=== PATIENT | male | born 1950 | race Caucasian/White ===

== ENCOUNTER 2020-09-16 09:11 | Outpatient (REF) | payer OTHER, SELFPAY ==
[2020-09-16 18:56] LABS: HCT 40.9 % (40.0-50.0); HGB 13.6 g/dL (13.5-17.5); MCH 30.7 pg (27.0-33.0); MCHC 33.3 % (32.0-36.0); MCV 92.3 fL (80-95); MPV 11.7 fL (8.0-11.0); Platelet Count 115 10^3/uL (130-400); RBC 4.43 10^6/uL (4.36-5.78); RDW 13.6 % (11.8-14.1); RDW-SD 46.5 fL; WBC 10.15 10^3/uL (4.4-10.8)
[2020-09-16 19:46] LABS: Iron 70 ug/dL (65-175)
[2020-09-16 19:54] LABS: Hemoglobin A1C 8.7 % (<5.7)
[2020-09-16 19:57] LABS: ALT 20 U/L (16-63); AST 18 U/L (15-37); Albumin 3.8 g/dL (3.4-5.0); Alkaline Phosphatase 176 U/L (46-116); Anion Gap 9.1 mmol/L (3-11); BUN 15 mg/dL (7-18); Bilirubin, Total 0.5 mg/dL (0.2-1.0); CO2 23.9 mmol/L (21.0-32.0); CREATININE 0.73 mg/dL (0.70-1.30); Calcium 9.3 mg/dL (8.5-10.1); Calculated LDL 70 mg/dL (<100); Chloride 103 mmol/L (98-107); Cholesterol 146 mg/dL (<200); Ferritin 148 ng/mL (26-388); Glucose 162 mg/dL (74-106); HDL Cholesterol 59 mg/dL (40-60); Potassium 4.8 mmol/L (3.5-5.1); Sodium 136 mmol/L (136-145); Total Protein 7.2 g/dL (6.4-8.2); Triglyceride 86 mg/dL (<150)
[2020-09-17 18:13] LABS: PSA, Screening 0.3 ng/mL (0.0-4.5)
== END 2020-09-16 09:31 ==
LOC: NCHCN 09:11
PROVIDERS: PCP Family Medicine; Visit Provider Physician Assistant
DX: D69.6 Thrombocytopenia, unspecified (principal); E11.9 Type 2 diabetes mellitus without complications; I25.10 Atherosclerotic heart disease of native coronary artery without angina pectoris; G25.81 Restless legs syndrome; N40.0 Benign prostatic hyperplasia without lower urinary tract symptoms; Z12.5 Encounter for screening for malignant neoplasm of prostate
CPT/HCPCS: 80053; 80061; 84153; 85027; 82728; 83036; 83540

== ENCOUNTER 2021-01-20 09:45 | Outpatient (REF) | payer OTHER, SELFPAY ==
[2021-01-20 16:37] LABS: COMMENT (LAB VIEW ONLY) 82.96 mg/dL; Microalb ug/mg Crea 98.1 ug/mg Cr
== END 2021-01-20 09:46 | disposition home or self-care (01) ==
LOC: NCHCN 09:45
PROVIDERS: PCP Family Medicine; Visit Provider Physician Assistant
DX: E11.9 Type 2 diabetes mellitus without complications (principal)
CPT/HCPCS: 82043; 82570

== ENCOUNTER 2021-05-27 15:28 | Outpatient (REF) | payer OTHER, SELFPAY ==
[2021-05-27 14:38] LABS: Creatine Kinase 69 U/L (39-308); FREE T4 1.06 ng/dL (0.76-1.46); TSH 1.39 uIU/mL (0.36-3.74)
[2021-05-27 14:39] LABS: ESR 14 mm/hr (0-20)
[2021-05-27 15:16] LABS: Vitamin B12 518 pg/mL (193-986)
[2021-05-27 21:28] LABS: Rheumatoid Factor <8.6 IU/mL (<12.0)
[2021-05-28 13:58] LABS: Albumin 57.7 % (55.8-66.1); Total Protein 6.4 g/dL (6.3-8.2)
[2021-05-28 14:03] LABS: ANA Interpretation Positive (Negative)
== END 2021-05-27 15:29 | disposition home or self-care (01) ==
LOC: NCHCN 15:28
PROVIDERS: PCP Family Medicine; Visit Provider Physician Assistant
DX: R13.19 Other dysphagia (principal)
CPT/HCPCS: 82550; 85652; 82607; 83519; 84165; 84439; 84443; 86038; 86431

== ENCOUNTER → 2021-06-08 02:11 | Outpatient (CLI) | payer OTHER, SELFPAY ==
--- NOTE | 2021-06-08 07:00 | DI.CT_ITS ---
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 TECHNIQUE: Imaging Protocol: Axial CT angiography was performed with multi-slice acquisition and mu lti-planar and/or 3D reconstructions. CONTRAST MATERIAL: Intravenous: Omnipaque 350 Contrast volume:structured data in ml COMPARISON: CT NECK WITH CONTRAST from 08/20/2010 FINDINGS: There is opacification of right-sided ethmoidal air cells as well as the right sphenoid sinus evident . Frontal sinuses are not included in the field of view. Visualized maxillary sinuses are clear as are the mastoid air cells. Salivary glands: Submandibular glands unremarkable. Parotid glands unremarkable. Nasopharynx: Unremarkable. Oropharynx: Uvula is slightly prominent size but midline. No obvious asymmetric tonsillar masses. Hypopharynx: Uvula is thickened and there is also thickening of the aryepiglottic folds, this more pr ominent on the right side and suspicious for neoplastic involvement. Vocal cords: Adducted and difficult to assess. Subglottic airway appears unremarkable. Lymph nodes: There is no obvious lymphadenopathy on either side of the neck-jugular chains nor in the supraclavicular regions. Vascular: There is significant atherosclerotic narrowing of the proximal right internal carotid arter y, this related to both calcified and noncalcified plaque. Similar findings are not seen on the oppo site-left side. The internal jugular veins are patent. Thyroid gland: Unremarkable Visualized lung apices: No nodules evident. Osseous: No lytic osseous lesions identified. IMPRESSION: 1. There is abnormal mass thickening of the epiglottis and aryepiglottic folds, more prominent on the right side-suspicious for neoplasm. Correlation with any history of prior radiation treatment recom mended. Recommend direct visualization-endoscopy. 2. No obvious significant adenopathy evident in the neck. 3. Significant atherosclerotic narrowing of the proximal right internal carotid artery incidentally noted. RADIATION DOSE DELIVERED: 383.66mGy.cm Total DLP DATA REPOSITORY: All CT scans at this facility are submitted to the National Radiology Data Registry (NRDR) Dose Index Registry (DIR) with the [employer] ([employer]). RADIATION OPTIMIZATION: All CT scans at this facility use at least one of these dose optimization te chniques: automated exposure control; mA and/or kV adjustment per patient size (includes targeted exa ms where dose is matched to clinical indication); or iterative reconstruction.
[2021-06-08 09:34] LABS: CREATININE 0.7 mg/dL (0.70-1.30)
[2021-06-08] MEDS: Omnipaque 350 MG/ML 100 ML BTL IJ (09:54)
[2021-06-08] MEDS: Normal Saline - Diluent 50 ML VIAL IV (09:55)
[2021-06-08] MEDS: Normal Saline Flush 10 ML SYR IVP (09:56)
== END ==
PROVIDERS: PCP Physician Assistant; Visit Provider Otolaryngology
DX: J38.7 Other diseases of larynx (principal); R13.10 Dysphagia, unspecified; R63.0 Anorexia; I65.21 Occlusion and stenosis of right carotid artery
CPT/HCPCS: 70491; 82565; J3490

== ENCOUNTER 2021-07-01 04:31 | Outpatient (CLI) | payer OTHER, SELFPAY ==
[2021-07-01] MEDS: Albuterol HFA 18 GM 200 PUFF INH IH (14:14)
[2021-07-01] MEDS: Inhaler, Assist Device 1 EACH MC (14:15)
--- NOTE | 2021-07-01 14:54 | W.PFT ---
Date of service: 07/01/21 Time of Service: 13:02 Pulmonary Function Test Result Requesting Provider Shonna Indications: COPD Interpretation Spirometry: There is moderate airflow limitation. There is not a significant bronchodilator effect. Lung Volumes: There is some evidence of air trapping. Diffusion Capacity: The diffusion is reduced. Airway Pressure: Airways resistance is increased. Impression Moderate airflow obstruction with a reduced diffusion. Note: When compared to 08/20/2010 the FVC has increased in the FEV1 has decreased. Clinical Correlation therefore is recommended.
--- NOTE | 2021-07-01 14:56 | W.PFT ---
Date of service: 07/01/21 Time of Service: 12:53 Pulmonary Function Test Result Indications: COPD 6 Minute Walk Test Distance: 1000 feet No significant desaturations experienced during duration of test.
== END 2021-07-01 04:32 | disposition home or self-care (01) ==
LOC: RT 04:31
PROVIDERS: PCP Physician Assistant; Visit Provider Student in an Organized Health Care Education/Training Program
DX: J44.9 Chronic obstructive pulmonary disease, unspecified (principal); R94.2 Abnormal results of pulmonary function studies
CPT/HCPCS: 94060; 94618; 94726; 94729

== ENCOUNTER 2021-08-21 10:56 | Inpatient (IN) | payer OTHER, SELFPAY ==
[2021-08-21] VITALS (51 sets, daily range): BP systolic 96–154; BP diastolic 33–63; PULSE 46–59; RESP 14–20; TEMP 36.3–37.1; O2SAT 89–100
--- NOTE | 2021-08-21 11:30 | RT.EKG_ITS ---
APPROVED REPORT Exam: Resting ECG Reason for Exam: sob Patient Location: E HR:52 bpm ECG Measurements Heart Rate 52 AXIS MO 177 P 70 QRSd 80 QRS 25 QT 428 T 51 QTc 398 Conclusion Sinus bradycardia...rate< 60 No stemi, intervals unremarkable
--- NOTE | 2021-08-21 11:32 | DI.CT_ITS ---
Exam(s) CT CHEST PE ABD PELVIS W EXAM: CT CHEST PE ABD PELVIS W CLINICAL HISTORY: cp, sob, cough, chills, recent procedure (peg tube TECHNIQUE: CT examination of the chest, abdomen, and pelvis was performed with intravenous infusion of 100 cc of Omnipaque 350. COMPARISON: No exams were available for comparison FINDINGS: There is large area of dense consolidation involving the right lower lobe. Patchy reticular nodular and ground-glass opacities are seen peripherally in both lung bases as well consistent pneumonia. Pr ior granulomatous disease is noted with intrapulmonary calcifications noted. The peripheral bronchi are of very small caliber which may reflect bronchospasm or mucous plugging. Peribronchial thickenin g extends into both pulmonary zay. There is no pleural effusion seen. There is no mediastinal or hilar adenopathy. Pulmonary arteries are unremarkable with no evidence of pulmonary embolic disease. Thoracic aorta and major branches appear intact with no evidence of aneurysm or dissection. No bony abnormality seen in the thorax. There is a recently placed PEG tube in place with its tip in this stomach and an appropriately inflat ed balloon. There is a small quantity of free air in the abdominal wall at the insertion site, presu mably related to the insertion procedure. Note is made of marked nodular contour of the liver consistent with history of cirrhosis. Spleen is mildly enlarged. The gallbladder has been surgically removed. No biliary dilatation seen. Pancreas appears intact. The adrenals are unremarkable in appearance. The kidneys appear intact with no evidence of hydroneph rosis or nephrolithiasis. Abdominal aorta and major visceral branches appear intact. No significant abdominal wall hernia seen. No significant abdominal or pelvic adenopathy. No focal bowel pathology. There is mild to moderate small bowel dilatation which may reflect an ileu s. No evidence of appendicitis or diverticulitis. IMPRESSION: Appearance of the lungs is consistent with acute infectious process with a large area of consolidatio n in the right lung base posteriorly and additional areas of presumed patchy multifocal pneumonia. PEG tube noted in place in the anterior abdominal wall extending into the gastric body. There is a s mall quantity of gas in the soft tissues of the abdominal wall presumably related to the PEG insertio n. No gross fluid collection seen. Findings consistent with small bowel ileus noted. RADIATION DOSE DELIVERED: Total DLP Total DLP CTDIvol
--- NOTE | 2021-08-21 11:46 | ED.GENADUL_ITS ---
Discharge Plan Disposition Patient Disposition: [facility] INPATIENT Condition: Stable Discharge Details Clinical Impression: COVID-19, HCAP (healthcare-associated pneumonia) Primary Care Provider: Zack Marc ED Provider: Levon Paredes Alfred Meds and New Rx's Prescriptions: No Action lansoprazole [Prevacid] 30 mg capsule,delayed release(DR/EC) 30 mg PO DAILY RF: 0 hydrocodone-acetaminophen 5-325 mg tablet 1 tab PO BID PRNRF: 0 sucralfate [Carafate] 1 gram tablet 1 g PO QAC RF: 0 montelukast 10 mg tablet 10 mg PO DAILY RF: 0 albuterol sulfate 90 mcg/actuation HFA aerosol inhaler 2 puff inhalation QID RF: 0 arformoterol [Brovana] 15 mcg/2 mL solution for nebulization 2 ml inhalation BID RF: 0 carvedilol [Coreg] 3.125 mg tablet 3.125 mg PO BID RF: 0 finasteride 5 mg tablet 5 mg PO DAILY RF: 0 tamsulosin [Flomax] 0.4 mg capsule 0.4 mg PO DAILY RF: 0 ipratropium-albuterol 0.5 mg-3 mg(2.5 mg base)/3 mL solution for nebulization 3 ml inhalation BID PRNRF: 0 losartan 25 mg tablet 25 mg PO DAILY RF: 0 metformin 1,000 mg tablet 1,000 mg PO BID RF: 0 nitroglycerin 0.4 mg tablet, sublingual See Rx Instructions sublingual DIRECTED PRNRF: 0 ropinirole 2 mg tablet 2 mg PO DAILY RF: 0 simvastatin 20 mg tablet 20 mg PO DAILY RF: 0 Bevespi Aerosphere 9-4.8 mcg HFA aerosol inhaler 2 puff inhalation BID Qty: 1 RF: 5 Medical Decision Making <Sukhwinder Lin, - Last Filed: 08/21/21 15:34> 71-year-old male with a past medical history of COPD, liver cirrhosis, diabetes, hypertension, coronary artery disease without stents, GERD, throat cancer, who is scheduled to have surgery on this on September 07 at [facility], who just had a feeding tube placed 3 days ago at [facility], presents today for chest pain abdominal pain and shortness of breath and difficulty breathing. Covid patient states that ever since the procedure he has had difficulty taking a deep breath, felt short of breath, and has had occasional chills. He has had a cough but it is been nonproductive. He also admits to severe left upper quadrant abdominal pain every time he coughs or takes a deep breath. He denies any history of blood clots. He denies any trauma. He has not been taking anything p.o., and has been using the PEG tube without pain or complication. He was vaccinated for Covid and has gotten his booster shot. does state that his oxygen saturations were 84% at home. He does not use home oxygen. he denies any other complaints at this time. He denies any complications during the procedure. No other modifying factors. No hemoptysis. Physical exam demonstrates mild tenderness over the left upper quadrant epigastric region at the site of the PEG tube. Lung sounds demonstrate crackles, he is mildly hypoxic at 92% on room air. Bedside ultrasound shows no free fluid in the abdomen, lung sliding is present bilaterally. Concern for potential aspiration pneumonia, but PE is also on the differential with the recent procedure. Surgical complication with diaphragmatic irritation is also on the differential. We will get CT scan, treat the patient's pain, monitor closely and reassess 3:32 PM Patient's Covid test has returned positive, no white count or bandemia. Renal function stable. VBG stable. Patient initially did go to CAT scan, however he is unable to tolerate the position. There is a significant delay in getting the imaging results, are still pending the patient going back to CAT scan. Patient will be signed out to my colleague Dr. Levon Paredes for follow-up on imaging and reassessment. Expect need for admission <Levon Paredes MD - Last Filed: 08/21/21 16:21> patient signed out to me pending imaging results which revealed consolidation of right lung base and ileus otherwise no acute findings. He is stable, does become hypoxic with movement though. Dexamethasone orderd for covid and covering for hcap with vancomycin and zosyn, will discuss with hospitalist about admission. His peg tube site shows no signs of infection, no erythema or warmth Imaging Data Radiologic Study: Attestation: I personally reviewed and interpreted this imaging study as follows: Imaging: CT Scan Radiologist's impression: IMPRESSION: Appearance of the lungs is consistent with acute infectious process with a large area of consolidation in the right lung base posteriorly and additional areas of presumed patchy multifocal pneumonia. PEG tube noted in place in the anterior abdominal wall extending into the gastric body. There is a small quantity of gas in the soft tissues of the abdominal wall presumably related to the PEG insertion. No gross fluid collection seen. Findings consistent with small bowel ileus noted. HPI <Sukhwinder Lin, - Last Filed: 08/21/21 15:34> General Date/Time Provider Initiated Documentation: 08/21/21 11:12 . HPI Narrative: 71-year-old male with a past medical history of COPD, liver cirrhosis, diabetes, hypertension, coronary artery disease without stents, GERD, throat c ancer, who is scheduled to have surgery on this on September 07 at [facility], who just had a feeding tube placed 3 days ago at [facility], presents today for chest pain abdominal pain and shortness of breath and difficulty breathing. Covid patient states that ever since the procedure he has had difficulty taking a deep breath, felt short of breath, and has had occasional chills. He has had a cough but it is been nonproductive. He also admits to severe left upper quadrant abdominal pain every time he coughs or takes a deep breath. He denies any history of blood clots. He denies any trauma. He has not been taking anything p.o., and has been using the PEG tube without pain or complication. He was vaccinated for Covid and has gotten his booster shot. does state that his oxygen saturations were 84% at home. He does not use home oxygen. he denies any other complaints at this time. He denies any complications during the procedure. No other modifying factors. No hemoptysis. Related Data Home Medications Medication Instructions Recorded Confirmed albuterol sulfate 90 mcg/actuation 2 puff INHALATION QID 05/15/21 08/21/21 aerosol inhaler arformoterol 15 mcg/2 mL solution 2 ml INHALATION BID 05/15/21 08/21/21 for nebulization carvedilol 3.125 mg tablet 3.125 mg PO BID 05/15/21 08/21/21 finasteride 5 mg tablet 5 mg PO DAILY 05/15/21 08/21/21 ipratropium 0.5 mg-albuterol 3 mg 3 ml INHALATION BID PRN ml 05/15/21 08/21/21 (2.5 mg base)/3 mL nebulization soln losartan 25 mg tablet 25 mg PO DAILY 05/15/21 08/21/21 metformin 1,000 mg tablet 1,000 mg PO BID 05/15/21 08/21/21 nitroglycerin 0.4 mg sublingual See Rx Instructions SUBLINGUAL 05/15/21 08/21/21 tablet DIRECTED PRN tab ropinirole 2 mg tablet 2 mg PO DAILY 05/15/21 08/21/21 simvastatin 20 mg tablet 20 mg PO DAILY 05/15/21 08/21/21 tamsulosin 0.4 mg capsule 0.4 mg PO DAILY 05/15/21 08/21/21 hydrocodone 5 mg-acetaminophen 325 1 tab PO BID PRN 05/21/21 08/21/21 mg tablet lansoprazole 30 mg capsule,delayed 30 mg PO DAILY 05/21/21 08/21/21 release montelukast 10 mg tablet 10 mg PO DAILY 06/03/21 08/21/21 sucralfate 1 gram tablet 1 g PO QAC 06/03/21 08/21/21 glycopyrrolate 9 mcg-formoterol 2 puff INHALATION BID #1 inh 06/26/21 08/21/21 4.8 mcg HFA aerosol inhaler Previous Rx's Medication Instructions Recorded glycopyrrolate 9 mcg-formoterol 2 puff INHALATION BID #1 inh 06/26/21 4.8 mcg HFA aerosol inhaler Allergies Allergy/AdvReac Type Severity Reaction Status Date / Time amitriptyline Allergy Verified 06/03/21 11:18 atorvastatin [From Lipitor] Allergy Verified 06/03/21 11:18 prednisone AdvReac Severe Verified 06/03/21 11:18 General Stated Complaint: GenMedical ETHAN: 3 Review of Systems <Sukhwinder Lin DO - Last Filed: 08/21/21 15:34> All systems reviewed & are unremarkable except as noted in HPI and below PFS <Sukhwinder Lin DO - Last Filed: 08/21/21 15:34> Medical History Allergic rhinitis Benign prostatic hyperplasia Carotid artery stenosis Cataract Chest pain Chronic back pain Contusion of right hip Coronary artery disease Diabetes mellitus Diverticular disease of colon Dysphagia Hypertension Injury, brachial plexus Lung collapse Lung nodule Macular degeneration Neck pain Peripheral artery disease Right lower lobe pneumonia Shoulder joint pain Sleep apnea Thrombocytopenia Transient ischemic attack Surgical History Hx of angioplasty Hx of cholecystectomy Hx of neck surgery Hx of shoulder surgery Family History Father Heart disease Cancer stomach cancer. Diabetes Asthma Mother Heart disease Cancer Uterine cancer. Son Cancer Renal cancer. 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 Exam <Sukhwinder Lin DO - Last Filed: 08/21/21 15:34> Narrative Exam Narrative: 1.Const: Well-nourished, Well-developed, appearing stated age 2.Eyes: PERRL, no conjunctival injection, and symmetrical lids. 3.ENT: Atraumatic external nose and ears. Moist MM. Neck: Symmetric, trachea midline, No thyromegaly. 4.CVS: +S1/S2, No murmurs or gallops. Peripheral pulses 2+ and equal in all ex tremities. Brisk capillary refill in all extremities. 5.RESP: Mildly labored respiratory effort, crackles in the bases. Reduced breath sounds throughout. No wheezes or rhonchi. 6.GI: Soft, mildly distended, mild tenderness around the PEG tube itself, but no other generalized abdominal tenderness. PEG tube itself does not show any significant discharge or redness or erythema 7.MSK: Normocephalic/Atraumatic, Extremities w/o deformity or ttp No cyanosis or clubbing, Normal movement of all extremities, no calf 8.Skin: Warm, Dry. No rashes or lesions. 9.Neuro: business systems lead II-XII grossly intact. Sensation grossly intact, no focal neurologic deficits. 10.Psych: (AAO) x3. Appropriate mood and affect Course <Sukhwinder Lin DO - Last Filed: 08/21/21 15:34> Vital Signs Vital signs: Vital Signs Temperature 36.7 C 08/21/21 11:10 Pulse 59 L 08/21/21 11:10 Respiratory Rate 20 08/21/21 11:10 Blood Pressure 137/51 L 08/21/21 11:10 Pulse Oximetry 98 08/21/21 11:10 Temperature 36.7 C 08/21/21 11:10 Pulse 59 L 08/21/21 11:10 Respiratory Rate 20 08/21/21 11:19 Respiratory Effort 08/21/21 11:19 Respiratory Depth Shallow 08/21/21 11:19 Blood Pressure 137/51 L 08/21/21 11:10 Blood Pressure Position Sitting 08/21/21 11:10 Pulse Oximetry 98 08/21/21 11:10 Oxygen Delivery Method Room Air 08/21/21 11:10 Oxygen Flow Rate 0 08/21/21 11:10 Pain Level 10 08/21/21 11:10 Lab/Test Results Lab/Test Results: 08/21/21 11:33 Blood Blood Culture - Pending 08/21/21 11:33 Blood Blood Culture - Pending Laboratory Tests Range/Units 08/21/21 11:40 COVID-19 Source NASOPHARYX
[2021-08-21 12:05] LABS: BE (Venous) 6 mmol/L (-2-3); HCO3 (Venous) 31 mmol/L (23-28); O2 Sat (Venous) 67 %; TCO2 (Venous) 28 mmol/L (24-29); pCO2 (Venous) 50 mmHg (41-51); pO2 (Venous) 34 mmHg
[2021-08-21 12:06] LABS: Abs Immature Grans 0.03 10^3/uL (0.0-0.06); Absolute Basophil Count 0.02 10^3/uL (0.0-0.2); Absolute Eosinophil Count 0.07 10^3/uL (0.0-0.7); Absolute Lymphocyte Count 1.51 10^3/uL (1.2-3.4); Absolute Monocyte Count 1.11 10^3/uL (0.1-0.8); Basophils % 0.2; Eosinophils % 0.7; HCT 38.9 % (40.0-50.0); HGB 12.7 g/dL (13.5-17.5); Immature Grans % 0.3; Lactate 1.1 mmol/L (0.6-1.4); MCH 30.8 pg (27.0-33.0); MCHC 32.6 % (32.0-36.0); MCV 94.2 fL (80-95); MPV 11.3 fL (8.0-11.0); Monocytes % 11.1; Neutrophils % 72.7; Nucleated RBC 0 %; RBC 4.13 10^6/uL (4.36-5.78); RDW 14.8 % (11.8-14.1); RDW-SD 51.2 fL; WBC 10.04 10^3/uL (4.4-10.8)
[2021-08-21 12:19] LABS: Platelet Count 82 10^3/uL (130-400)
[2021-08-21 12:20] LABS: INR 1.2 (0.9-1.1); PTT Activated 27.1 sec (21.0-27.5); Prothrombin Time 11.6 sec (9.3-11.0)
[2021-08-21 12:25] LABS: ALT 18 U/L (16-63); AST 13 U/L (15-37); Albumin 3.1 g/dL (3.4-5.0); Alkaline Phosphatase 90 U/L (46-116); Anion Gap 5.3 mmol/L (3-11); BUN 13 mg/dL (7-18); Bilirubin, Total 0.6 mg/dL (0.2-1.0); CO2 30.7 mmol/L (21.0-32.0); CREATININE 0.6 mg/dL (0.70-1.30); Chloride 104 mmol/L (98-107); Glucose 130 mg/dL (74-106); Lipase 83 U/L (73-393); Potassium 4.3 mmol/L (3.5-5.1); Sodium 140 mmol/L (136-145); Total Protein 7.1 g/dL (6.4-8.2)
[2021-08-21 12:32] LABS: Troponin I < 0.05 ng/mL (<0.06)
[2021-08-21 12:36] LABS: COVID-19 PCR POSITIVE (Negative)
[2021-08-21] MEDS: Normal Saline Flush 10 ML SYR IVP ×2 (13:22→19:43)
[2021-08-21] MEDS: Omnipaque 350 MG/ML 100 ML BTL IJ (15:37)
[2021-08-21] MEDS: Normal Saline - Diluent 50 ML VIAL IV (15:38)
[2021-08-21 16:04] LABS: Troponin I < 0.05 ng/mL (<0.06)
[2021-08-21] MEDS: Dexamethasone 10 MG/ML VIAL IVP (16:54)
[2021-08-21] MEDS: PIPERACILLIN/TAZO 4.5 GM in Normal Saline 100 ML IVPB (16:54)
[2021-08-21] MEDS: VANCOMYCIN 1,000 MG in Normal Saline 250 ML 166.6666 MG IVPB (17:43)
--- NOTE | 2021-08-21 17:59 | W.PM.HP.N ---
Date of service: 08/21/21 Time of Service: 18:00 Assessment and Plan Assessment and plan (1) COVID-19: Status: Acute Assessment and plan: with hypoxia and complicated by what appears to be aspiration pneumonia. Will treat with remdesivir and dexamethasone, IS/acapella/proning. The patient is not a candidate for baricitinib due to h/o cirrhosis. (2) Aspiration pneumonia: Status: Acute Assessment and plan: Likely occured because of either the PEG placement or since the PEG placement from TFs. Tx with zosyn. (3) Hypoxia: Status: Acute Assessment and plan: Multifactorial. Due to above. As above. (4) Cancer, epiglottis: Status: Acute Assessment and plan: The patient is expected to undergo surgery forthis at [facility] on 09/07. NPO. TFs via PEG when ileus resolves. Might be a difficult airway. (5) Dysphagia: Status: Acute Assessment and plan: s/p PEG. As above (6) Thrombocytopenia: Status: Chronic Assessment and plan: Acute on chronic, in setting of known cirrhosis and varices as well as COVID-19. Will not administer chemical DVT prophylaxis. Will trend plts. (7) Ileus following gastrointestinal surgery: Status: Acute Assessment and plan: Consult general surgery. NPO. Very gentle IVF x 1 L. (8) Cirrhosis: Status: Chronic Assessment and plan: Due to VO, w/ h/o varices and thrombocytopenia. As above. (9) Diabetes mellitus: Status: Chronic Assessment and plan: hold oral hypoglycemics. Cover with SSI. Expect steroid induced hyperglycemia. (10) DVT prophylaxis: Status: Acute Assessment and plan: SCDs. Avoid Chemical DVT ppx in setting of thrombocytopenia and known varices. 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 on 08/19/21, who also has a h/o VO/cirrhosis with varices and chronic thrombocytopenia who presented to [facility] ED today w/ complaints of shortness of breath and feeling of inability to take a deep breath ever since the procedure. He also reported midsternal chest and abdominal pain since the procedure which are entirely relieved at the time of my interview with him. Chest and abdominal pain were worse with deep breathing and coughing. He reports chills and nonproductive cough. His O2 sat at home was 84% on RA. He was saturating 92% on RA in our ED, but was placed on 2-3 L of nonrebreather and felt better. He tested positive for COVID-19. His imaging revealed a RLL pneumonia and an ileus. He was given empiric vancomycin/zosyn. Hospitalist admission was requested. He is currently on 3 L of O2 which is being given via a nonrebreather, which is more comfortable for him. He gets his nutrition through PEG. He has not had flatus and has not had a BM for a while - he cannot specify how long. He states that right now he feels the best he has felt in a long time. We do not have the tubing for his model of the PEG tube and his will bring it in tomorrow. Review of Systems All systems reviewed & are unremarkable except as noted in HPI and below PFSH Medical History Allergic rhinitis Benign prostatic hyperplasia Carotid artery stenosis Cataract Chest pain Chronic back pain Contusion of right hip Coronary artery disease Diabetes mellitus Diverticular disease of colon Dysphagia Hypertension Injury, brachial plexus Lung collapse Lung nodule Macular degeneration Neck pain Peripheral artery disease Right lower lobe pneumonia Shoulder joint pain Sleep apnea Thrombocytopenia Transient ischemic attack Surgical History Hx of angioplasty Hx of cholecystectomy Hx of neck surgery Hx of shoulder surgery Family History Father Heart disease Cancer stomach cancer. Diabetes Asthma Mother Heart disease Cancer Uterine cancer. Son Cancer Renal cancer. 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 Meds Allergies and Home Medications Allergies Allergy/AdvReac Type Severity Reaction Status Date / Time amitriptyline Allergy Verified 06/03/21 11:18 atorvastatin [From Lipitor] Allergy Verified 06/03/21 11:18 prednisone AdvReac Severe Verified 06/03/21 11:18 Home Medications Medication Instructions Recorded Confirmed Type albuterol sulfate 90 mcg/actuation 2 puff INHALATION QID 05/15/21 08/21/21 History aerosol inhaler arformoterol 15 mcg/2 mL solution 2 ml INHALATION BID 05/15/21 08/21/21 History for nebulization carvedilol 3.125 mg tablet 3.125 mg PO BID 05/15/21 08/21/21 History finasteride 5 mg tablet 5 mg PO DAILY 05/15/21 08/21/21 History ipratropium 0.5 mg-albuterol 3 mg 3 ml INHALATION BID PRN ml 05/15/21 08/21/21 History (2.5 mg base)/3 mL nebulization soln losartan 25 mg tablet 25 mg PO DAILY 05/15/21 08/21/21 History metformin 1,000 mg tablet 1,000 mg PO BID 05/15/21 08/21/21 History nitroglycerin 0.4 mg sublingual See Rx Instructions SUBLINGUAL 05/15/21 08/21/21 History tablet DIRECTED PRN tab ropinirole 2 mg tablet 2 mg PO DAILY 05/15/21 08/21/21 History simvastatin 20 mg tablet 20 mg PO DAILY 05/15/21 08/21/21 History tamsulosin 0.4 mg capsule 0.4 mg PO DAILY 05/15/21 08/21/21 History hydrocodone 5 mg-acetaminophen 325 1 tab PO BID PRN 05/21/21 08/21/21 History mg tablet lansoprazole 30 mg capsule,delayed 30 mg PO DAILY 05/21/21 08/21/21 History release montelukast 10 mg tablet 10 mg PO DAILY 06/03/21 08/21/21 History sucralfate 1 gram tablet 1 g PO QAC 06/03/21 08/21/21 History glycopyrrolate 9 mcg-formoterol 2 puff INHALATION BID #1 inh 06/26/21 08/21/21 Rx 4.8 mcg HFA aerosol inhaler Exam Narrative Exam Narrative: General: Pleasant middle-aged male, A&Ox3, laying comfortably in bed, no evidence of dyspnea/tachypnea/cyanosis, able to speak in full sentences Neurological: A&Ox3, no focal deficits Psychiatric: Appropriate speech pattern/content Skin: Visible skin intact HEENT: Atraumatic, normocephalic, EOMI, dry MM, clear oropharynx, no goiter or JVD Cardiovascular: RRR, no m/r/g Lungs: slight rales on inspiration, diminished breath sounds at B bases Gastrointestinal: soft, tender around the PEG site which is dressed/dry/intact, nondistended, I did not hear bowel sounds Genitourinary: deferred Extremities: no edema BLE's Results Imaging Additional studies: CT chest/abdomen/pelvis: Appearance of the lungs is consistent with acute infectious process with a large area of consolidation in the right lung base posteriorly and additional areas of presumed patchy multifocal pneumonia. PEG tube noted in place in the anterior abdominal wall extending into the gastric body. There is a small quantity of gas in the soft tissues of the abdominal wall presumably related to the PEG insertion. No gross fluid collection seen. Findings consistent with small bowel ileus noted. EKG: HR 52, sinus bradycardia, no acute ischemia Labs Result diagrams: 08/21/21 12:00 08/21/21 12:00 Labs: Laboratory Results - last 24 hr 08/21/21 08/21/21 08/21/21 11:40 12:00 12:00 WBC RBC Hgb Hct MCV MCH MCHC RDW Plt Count MPV Immature Gran % Neutrophils % Lymphocytes % Monocytes % Eosinophils % Basophils % Nucleated RBC % Absolute Neutrophils Absolute Lymphocytes Absolute Monocytes Absolute Eosinophils Absolute Basophils PT INR APTT VBG pH VBG pCO2 VBG pO2 VBG HCO3 VBG Total CO2 VBG O2 Saturation VBG Base Excess VBG Lactate 1.1 Sodium 140 Potassium 4.3 Chloride 104 Carbon Dioxide 30.7 Anion Gap 5.3 BUN 13 Creatinine 0.6 L Estimated GFR/1.73 m2 >= 60.00 Glucose 130 H Calcium 9.0 Total Bilirubin 0.6 AST 13 L ALT 18 Alkaline Phosphatase 90 Troponin I < 0.05 Total Protein 7.1 Albumin 3.1 L Lipase 83 COVID-19 Source NASOPHARYX SARS-CoV-2 (PCR) POSITIVE A* 08/21/21 08/21/21 08/21/21 12:00 12:00 12:00 WBC 10.04 RBC 4.13 L Hgb 12.7 L Hct 38.9 L MCV 94.2 MCH 30.8 MCHC 32.6 RDW 14.8 H Plt Count 82 L MPV 11.3 H Immature Gran % 0.3 Neutrophils % 72.7 Lymphocytes % 15.0 Monocytes % 11.1 Eosinophils % 0.7 Basophils % 0.2 Nucleated RBC % 0 Absolute Neutrophils 7.30 H Absolute Lymphocytes 1.51 Absolute Monocytes 1.11 H Absolute Eosinophils 0.07 Absolute Basophils 0.02 PT 11.6 H INR 1.2 H APTT 27.1 VBG pH 7.40 VBG pCO2 50 VBG pO2 34 VBG HCO3 31 H VBG Total CO2 28 VBG O2 Saturation 67 VBG Base Excess 6 H VBG Lactate Sodium Potassium Chloride Carbon Dioxide Anion Gap BUN Creatinine Estimated GFR/1.73 m2 Glucose Calcium Total Bilirubin AST ALT Alkaline Phosphatase Troponin I Total Protein Albumin Lipase COVID-19 Source SARS-CoV-2 (PCR) 08/21/21 15:30 WBC RBC Hgb Hct MCV MCH MCHC RDW Plt Count MPV Immature Gran % Neutrophils % Lymphocytes % Monocytes % Eosinophils % Basophils % Nucleated RBC % Absolute Neutrophils Absolute Lymphocytes Absolute Monocytes Absolute Eosinophils Absolute Basophils PT INR APTT VBG pH VBG pCO2 VBG pO2 VBG HCO3 VBG Total CO2 VBG O2 Saturation VBG Base Excess VBG Lactate Sodium Potassium Chloride Carbon Dioxide Anion Gap BUN Creatinine Estimated GFR/1.73 m2 Glucose Calcium Total Bilirubin AST ALT Alkaline Phosphatase Troponin I < 0.05 Total Protein Albumin Lipase COVID-19 Source SARS-CoV-2 (PCR) Last Vital Signs Temp 36.7 C 08/21/21 11:10 Pulse 50 L 08/21/21 17:01 Resp 20 08/21/21 11:19 BP 102/45 L 08/21/21 17:01 Pulse Ox 97 08/21/21 17:01
[2021-08-21 18:14] LABS: NT-proBNP 376 pg/mL (<300)
[2021-08-21 18:29] LABS: Procalcitonin 0.1 ng/mL
[2021-08-21] MEDS: REMDESIVIR 200 MG in Normal Saline 250 ML 250 MG IVPB (19:42)
[2021-08-21] MEDS: Ipratropium/Albuterol 4 GM 120 PUFF INH IH (22:40)
[2021-08-21] MEDS: Albuterol HFA 8 GM 60 PUFF INH IH (22:41)
[2021-08-21] MEDS: PIPERACILLIN/TAZO 3.375 GM in Normal Saline 50 ML IVPB (22:42)
[2021-08-21] MEDS: Lidocaine 2% Jelly 11 ML SYR UR (22:43)
[2021-08-22] MEDS: Insulin Aspart 300 UNITS/3 ML PEN SC ×2 (00:33→05:58)
[2021-08-22 00:43] VITALS: O2SAT 92
[2021-08-22] MEDS: PIPERACILLIN/TAZO 3.375 GM in Normal Saline 50 ML IVPB (02:44)
[2021-08-22] MEDS: Normal Saline Flush 10 ML SYR IVP ×2 (02:45→10:07)
[2021-08-22 02:50] VITALS: O2SAT 95
[2021-08-22] MEDS: DEXTROSE 5%-LACTATED RINGERS 1,000 ML 50 ML IV (02:50)
[2021-08-22 06:06] VITALS: BP 110/49; PULSE 49; RESP 16; TEMP 36.2; O2SAT 90
[2021-08-22 06:42] VITALS: O2SAT 94
[2021-08-22 07:00] VITALS: PULSE 42
[2021-08-22 08:02] LABS: Abs Immature Grans 0.04 10^3/uL (0.0-0.06); Absolute Basophil Count 0.01 10^3/uL (0.0-0.2); Absolute Lymphocyte Count 0.75 10^3/uL (1.2-3.4); Absolute Monocyte Count 0.32 10^3/uL (0.1-0.8); Absolute Neutrophil Count 5.33 10^3/uL (1.2-6.7); Basophils % 0.2; HCT 35.1 % (40.0-50.0); HGB 11.7 g/dL (13.5-17.5); Immature Grans % 0.6; Lymphocytes % 11.6; MCH 30.7 pg (27.0-33.0); MCHC 33.3 % (32.0-36.0); MCV 92.1 fL (80-95); MPV 11.2 fL (8.0-11.0); Neutrophils % 82.6; Nucleated RBC 0 %; RBC 3.81 10^6/uL (4.36-5.78); RDW 14.6 % (11.8-14.1); RDW-SD 49.3 fL; WBC 6.45 10^3/uL (4.4-10.8)
[2021-08-22 08:15] LABS: Diff Comment PLT Morph Reviewed; Platelet Count 85 10^3/uL (130-400); RBC Morphology Normal
[2021-08-22 08:18] LABS: ALT 12 U/L (16-63); AST 10 U/L (15-37); Albumin 2.6 g/dL (3.4-5.0); Alkaline Phosphatase 78 U/L (46-116); Anion Gap 3.5 mmol/L (3-11); BUN 15 mg/dL (7-18); Bilirubin, Direct 0.2 mg/dL (0.0-0.2); Bilirubin, Total 0.6 mg/dL (0.2-1.0); C-Reactive Protein 10.43 mg/dL (0.0-0.3); CO2 30.5 mmol/L (21.0-32.0); CREATININE 0.7 mg/dL (0.70-1.30); Calcium 8.8 mg/dL (8.5-10.1); Chloride 106 mmol/L (98-107); Glucose 177 mg/dL (74-106); Magnesium 2.2 mg/dL (1.8-2.4); Potassium 4.4 mmol/L (3.5-5.1); Sodium 140 mmol/L (136-145); Total Protein 6.5 g/dL (6.4-8.2)
[2021-08-22 08:36] LABS: D-Dimer 864 ng/mlFEU (<500)
[2021-08-22 08:46] LABS: Ferritin 278 ng/mL (26-388)
--- NOTE | 2021-08-22 08:46 | PDOC.CMIN ---
- If Service Date Differs Date of service: 08/22/21 Time of Service: 08:46 Care Management Initial Assess REASON FOR HOSPITALIZATION:: Covid-19, Hypoxia, Aspiration Pneumonia, Epiglottis cancer, Dysphagia PAST MEDICAL HISTORY/PAST SURGICAL HISTORY:: Medical History . Allergic rhinitis. Benign prostatic hyperplasia. Carotid artery stenosis. Cataract. Chest pain. Chronic back pain. Contusion of right hip. Coronary artery disease. Diabetes mellitus. Diverticular disease of colon. Dysphagia. Hypertension. Injury, brachial plexus. Lung collapse. Lung nodule. Macular degeneration. Neck pain. Peripheral artery disease. Right lower lobe pneumonia. Shoulder joint pain. Sleep apnea. Thrombocytopenia. Transient ischemic attack. Surgical History . Hx of angioplasty. Hx of cholecystectomy. Hx of neck surgery. Hx of shoulder surgery PREVIOUS FUNCTIONAL STATUS/SOCIAL/FAMILY SUPPORTS:: Carroll lives in [place] with his Arlen. CURRENT FUNCTIONAL STATUS:: CM attempted to connect with Carroll today by phone due to covid precautions, however he did not answer his phone today. CM will continue to follow. ADVANCE DIRECTIVES:: None on file at [facility] Has patient been provided with info about the portal/API?: Yes Did the patient sign up for the portal?: No CODE STATUS:: Full Code INSURANCE COVERAGE / FINANCIAL ISSUES:: Commerical Medicare Replacement CURRENT HOME/COMMUNITY SERVICES/EQUIPMENT:: CM to follow. PRIMARY CARE PHYSICIAN:: Dr. Zack Marc POTENTIAL DISCHARGE NEEDS:: CM to follow. PATIENT/FAMILY EDUCATION NEEDS:: Review discharge instructions and plan to follow up with community providers. ask me three. TRANSPORTATION:: Via private vehicle with family. PLAN:: Anticipate Carroll will be discharged home when medically cleared by MD. He will follow up with community providers and discharge plan of care as prescribed.CM to follow.
[2021-08-22] MEDS: Dexamethasone 4 MG/ML VIAL 6 MG IVP (10:08)
[2021-08-22] MEDS: Ipratropium/Albuterol 4 GM 120 PUFF INH IH (10:09)
[2021-08-22] MEDS: Albuterol HFA 8 GM 60 PUFF INH IH (10:11)
[2021-08-22 10:20] VITALS: BP 137/55; PULSE 44; RESP 22; TEMP 36; O2SAT 92
--- NOTE | 2021-08-22 12:15 | SCONE_ITS ---
Date of service: 08/22/21 Time of Service: 12:16 Assessment and Plan Assessment and plan (1) Hypoxia: Status: Acute (2) Ileus following gastrointestinal surgery: Status: Acute (3) Thrombocytopenia: Status: Chronic (4) Cancer, epiglottis: Status: Acute (5) Aspiration pneumonia: Status: Acute (6) COVID-19: Status: Acute (7) Nicotine dependence, cigarettes, uncomplicated: Status: Acute (8) Cirrhosis: Status: Chronic (9) Anorexia: Status: Acute (10) Head and neck cancer: Status: Acute (11) Protein-calorie malnutrition, moderate: Status: Acute (12) Hypertension: Status: Chronic (13) Diabetes mellitus: Status: Chronic (14) Diverticular disease of colon: Status: Acute (15) Sleep apnea: Status: Acute (16) Benign prostatic hyperplasia: Status: Chronic (17) Coronary artery disease: Status: Chronic (18) Carotid artery stenosis: Status: Acute (19) Transient ischemic attack: Status: Acute (20) Macular degeneration: Status: Acute (21) Noncompliance with treatment: Status: Acute (22) Cirrhosis of liver: Status: Acute (23) GERD (gastroesophageal reflux disease): Status: Chronic (24) COPD (chronic obstructive pulmonary disease): Status: Chronic Qualifiers: COPD type: emphysema Emphysema type: centrilobular Qualified Code(s): J43.2 - Centrilobular emphysema (25) Esophageal varices: Status: Acute (26) Restless leg: Status: Acute (27) Extrapyramidal disorder: Status: Acute (28) Hyperlipidemia: Status: Acute [facility] Medical History Allergic rhinitis Benign prostatic hyperplasia Carotid artery stenosis Cataract Chest pain Chronic back pain Contusion of right hip Coronary artery disease Diabetes mellitus Diverticular disease of colon Dysphagia Hypertension Injury, brachial plexus Lung collapse Lung nodule Macular degeneration Neck pain Peripheral artery disease Right lower lobe pneumonia Shoulder joint pain Sleep apnea Thrombocytopenia Transient ischemic attack Surgical History (Updated 08/22/21 @ 12:19 by Saundra Nuno DO) Hx of angioplasty Hx of cholecystectomy Hx of neck surgery Hx of shoulder surgery Family History Father Heart disease Cancer stomach cancer. Diabetes Asthma Mother Heart disease Cancer Uterine cancer. Son Cancer Renal cancer. 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 Results Last Vital Signs Temp 36 C L 08/22/21 10:20 Pulse 44 L 08/22/21 10:20 Resp 22 08/22/21 10:20 BP 137/55 L 08/22/21 10:20 Pulse Ox 92 08/22/21 10:20 Labs Result diagrams: 08/22/21 07:35 08/22/21 07:35 Labs: Laboratory Results - last 24 hr 08/21/21 08/21/21 08/21/21 11:40 12:00 12:00 WBC 10.04 RBC 4.13 L Hgb 12.7 L Hct 38.9 L MCV 94.2 MCH 30.8 MCHC 32.6 RDW 14.8 H Plt Count 82 L MPV 11.3 H Immature Gran % 0.3 Neutrophils % 72.7 Lymphocytes % 15.0 Monocytes % 11.1 Eosinophils % 0.7 Basophils % 0.2 Nucleated RBC % 0 Absolute Neutrophils 7.30 H Absolute Lymphocytes 1.51 Absolute Monocytes 1.11 H Absolute Eosinophils 0.07 Absolute Basophils 0.02 RBC Morphology PT INR APTT D-Dimer Sodium 140 Potassium 4.3 Chloride 104 Carbon Dioxide 30.7 Anion Gap 5.3 BUN 13 Creatinine 0.6 L Estimated GFR/1.73 m2 >= 60.00 Glucose 130 H Calcium 9.0 Magnesium Ferritin Total Bilirubin 0.6 Conjugated Bilirubin AST 13 L ALT 18 Alkaline Phosphatase 90 Troponin I < 0.05 C-Reactive Protein NT-Pro-B Natriuret Pep Total Protein 7.1 Albumin 3.1 L Lipase 83 Procalcitonin SARS-CoV-2 (PCR) POSITIVE A* 08/21/21 08/21/21 08/21/21 12:00 12:00 12:00 WBC RBC Hgb Hct MCV MCH MCHC RDW Plt Count MPV Immature Gran % Neutrophils % Lymphocytes % Monocytes % Eosinophils % Basophils % Nucleated RBC % Absolute Neutrophils Absolute Lymphocytes Absolute Monocytes Absolute Eosinophils Absolute Basophils RBC Morphology PT 11.6 H INR 1.2 H APTT 27.1 D-Dimer Sodium Potassium Chloride Carbon Dioxide Anion Gap BUN Creatinine Estimated GFR/1.73 m2 Glucose Calcium Magnesium Ferritin Total Bilirubin Conjugated Bilirubin AST ALT Alkaline Phosphatase Troponin I C-Reactive Protein NT-Pro-B Natriuret Pep 376 H Total Protein Albumin Lipase Procalcitonin 0.1 SARS-CoV-2 (PCR) 08/21/21 08/22/21 08/22/21 15:30 07:35 07:35 WBC 6.45 D RBC 3.81 L Hgb 11.7 L Hct 35.1 L MCV 92.1 MCH 30.7 MCHC 33.3 RDW 14.6 H Plt Count 85 L MPV 11.2 H Immature Gran % 0.6 Neutrophils % 82.6 Lymphocytes % 11.6 Monocytes % 5.0 Eosinophils % 0.0 Basophils % 0.2 Nucleated RBC % 0 Absolute Neutrophils 5.33 Absolute Lymphocytes 0.75 L Absolute Monocytes 0.32 Absolute Eosinophils 0.00 Absolute Basophils 0.01 RBC Morphology Normal PT INR APTT D-Dimer Sodium 140 Potassium 4.4 Chloride 106 Carbon Dioxide 30.5 Anion Gap 3.5 BUN 15 Creatinine 0.7 Estimated GFR/1.73 m2 >= 60.00 Glucose 177 H Calcium 8.8 Magnesium 2.2 Ferritin 278 Total Bilirubin 0.6 Conjugated Bilirubin 0.2 AST 10 L ALT 12 L Alkaline Phosphatase 78 Troponin I < 0.05 C-Reactive Protein 10.43 H NT-Pro-B Natriuret Pep Total Protein 6.5 Albumin 2.6 L Lipase Procalcitonin SARS-CoV-2 (PCR) 08/22/21 07:35 WBC RBC Hgb Hct MCV MCH MCHC RDW Plt Count MPV Immature Gran % Neutrophils % Lymphocytes % Monocytes % Eosinophils % Basophils % Nucleated RBC % Absolute Neutrophils Absolute Lymphocytes Absolute Monocytes Absolute Eosinophils Absolute Basophils RBC Morphology PT INR APTT D-Dimer 864 H Sodium Potassium Chloride Carbon Dioxide Anion Gap BUN Creatinine Estimated GFR/1.73 m2 Glucose Calcium Magnesium Ferritin Total Bilirubin Conjugated Bilirubin AST ALT Alkaline Phosphatase Troponin I C-Reactive Protein NT-Pro-B Natriuret Pep Total Protein Albumin Lipase Procalcitonin SARS-CoV-2 (PCR)
--- NOTE | 2021-08-22 17:30 | W.PM.DS.N ---
DS: Diagnosis Discharge Diagnosis (1) COVID-19: Status: Acute (2) Aspiration pneumonia: Status: Acute (3) Hypoxia: Status: Acute (4) Ileus following gastrointestinal surgery: Status: Acute (5) Thrombocytopenia: Status: Chronic (6) Cancer, epiglottis: Status: Acute (7) Nicotine dependence, cigarettes, uncomplicated: Status: Acute (8) Cirrhosis: Status: Chronic (9) Anorexia: Status: Acute (10) Head and neck cancer: Status: Acute (11) Protein-calorie malnutrition, moderate: Status: Acute (12) Hypertension: Status: Chronic (13) Diabetes mellitus: Status: Chronic (14) Diverticular disease of colon: Status: Acute (15) Sleep apnea: Status: Acute (16) Benign prostatic hyperplasia: Status: Chronic (17) Coronary artery disease: Status: Chronic (18) Carotid artery stenosis: Status: Acute (19) Transient ischemic attack: Status: Acute (20) Macular degeneration: Status: Acute (21) Noncompliance with treatment: Status: Acute (22) Cirrhosis of liver: Status: Acute (23) GERD (gastroesophageal reflux disease): Status: Chronic (24) COPD (chronic obstructive pulmonary disease): Status: Chronic (25) Esophageal varices: Status: Acute (26) Restless leg: Status: Acute (27) Extrapyramidal disorder: Status: Acute (28) Hyperlipidemia: Status: Acute Discharge Plan Disposition Patient Disposition: AGAINST MEDICAL ADVICE Condition: Stable Discharge Details Reason For Visit: COVID-19 Pneumonia, HCAP, Hypoxia Admit Date/Time: 08/21/21 16:33 Admit Provider: Carmen Fatima Attending Provider: Carmen Fatima Primary Care Provider: Zack Marc Hospital Course Hospital Course: 71 yr old white male w/ complicated PMH including suprglottic cardinoma, COPD, NIDDM, JENNIFER (on CPAP), S/P PEG tube placement by [facility] on 08/19, hx of VO/cirrhosis w/ varices and chronic thrombocytopenia, who presented to the [facility] ED w/ symptoms of dyspnea, midsternal chest and abdominal pain since his PEG procedure. He was noted to be hypoxemic w/ SPO2 84% and workup in the ER included nasal swab for SARS-CoV2 positive. He had been vaccinated and just received his booster vaccine agains Covid-19 3 days prior to this admission. CT chest c/w with large are of consolidation in right lung base posteriorly along w/ diffuse patchy multifocal pneumonia and CT of the abdomen c/w small bowel ileus. He was started on Vancomycin and Zosyn empirically for possible aspiration pneumonia and begun on Remdesevir and decadron but baricitinib was witheld d/t cirrhosis. Patient was made NPO and surgery was consulted regarding the postop ileus. Unfortunately the patient was adadamant that he did not have COVID-19 and he left the hospital against medical advice; he called his who picked him up. Nursing tried to reason w/ him and before I could see him, he had left the building. Home Meds and New Rx's Prescriptions: No Action lansoprazole [Prevacid] 30 mg capsule,delayed release(DR/EC) 30 mg PO DAILY RF: 0 hydrocodone-acetaminophen 5-325 mg tablet 1 tab PO BID PRNRF: 0 sucralfate [Carafate] 1 gram tablet 1 g PO QAC RF: 0 montelukast 10 mg tablet 10 mg PO DAILY RF: 0 albuterol sulfate 90 mcg/actuation HFA aerosol inhaler 2 puff inhalation QID RF: 0 arformoterol [Brovana] 15 mcg/2 mL solution for nebulization 2 ml inhalation BID RF: 0 carvedilol [Coreg] 3.125 mg tablet 3.125 mg PO BID RF: 0 finasteride 5 mg tablet 5 mg PO DAILY RF: 0 tamsulosin [Flomax] 0.4 mg capsule 0.4 mg PO DAILY RF: 0 ipratropium-albuterol 0.5 mg-3 mg(2.5 mg base)/3 mL solution for nebulization 3 ml inhalation BID PRNRF: 0 losartan 25 mg tablet 25 mg PO DAILY RF: 0 metformin 1,000 mg tablet 1,000 mg PO BID RF: 0 nitroglycerin 0.4 mg tablet, sublingual See Rx Instructions sublingual DIRECTED PRNRF: 0 ropinirole 2 mg tablet 2 mg PO DAILY RF: 0 simvastatin 20 mg tablet 20 mg PO DAILY RF: 0 Bevespi Aerosphere 9-4.8 mcg HFA aerosol inhaler 2 puff inhalation BID Qty: 1 RF: 5 Discharge Instructions Activity:: Activity as Tolerated Equipment/Supplies:: No Equipment Needed Diet:: Other Discharge Orders Discharge Orders: Discharge Order (Routine); Ordered 10/30/21 Ordered By: Paulo De La Rosa Discharge Data Discharge Date/Time-TO BE ENTERED AT DEPARTURE: 08/22/21 13:11 DS: Summary Time Spent with Patient providing and/or coordinating discharge services: Less than 30 minutes Status at Discharge Functional status at discharge: independent ambulation Overall status at discharge: patient is not back to baseline Mental Status: mental status grossly normal Speech and Movement: speech and movement normal Mood: congruent mood Affect: normal affect Exam Psych Mental Status: mental status grossly normal Speech and Movement: speech and movement normal Mood: congruent mood Affect: normal affect DS: Data Vitals/I&O Vitals and I&O: Vital Signs Temperature 36 C L 08/22/21 10:20 Temperature Source Tympanic 08/22/21 10:20 Pulse 44 L 08/22/21 10:20 Pulse Rhythm Regular 08/22/21 09:00 Respiratory Rate 22 08/22/21 10:20 Respiratory Effort 08/22/21 09:00 Respiratory Depth Normal 08/22/21 09:00 Respiratory Pattern Normal 08/22/21 09:00 Blood Pressure 137/55 L 08/22/21 10:20 Blood Pressure Mean 58 08/21/21 17:01 Blood Pressure Position Sitting 08/21/21 11:10 Pulse Oximetry 92 08/22/21 10:20 Oxygen Delivery Method OxyMask 08/22/21 10:20 Oxygen Flow Rate 5 08/22/21 10:20 Fraction of Inspired Oxygen (FIO2) 21 08/21/21 23:00 Pain Level 0 08/22/21 10:20 Comment 08/21/21 19:51 Intake & Output 08/21/21 08/22/21 08/22/21 23:59 11:59 23:59 Intake Total 160 / 160 Output Total 900 / 900 480 / 680 200 / 680 Balance -740 / -740 -470 / -670 -200 / -670 Weight 65 kg Intake: IV 160 / 160 Output: Urine 900 / 900 480 / 680 200 / 680 Other: Urine Color Straw Yellow Urine Appearance Clear Clear Comment patient left ama Data Completed and Pending Labs on day of discharge: Labs from last 24 hours 08/22/21 08/22/21 08/22/21 07:35 07:35 07:35 WBC 6.45 D RBC 3.81 L Hgb 11.7 L Hct 35.1 L MCV 92.1 MCH 30.7 MCHC 33.3 RDW 14.6 H Plt Count 85 L MPV 11.2 H Immature Gran % 0.6 Neutrophils % 82.6 Lymphocytes % 11.6 Monocytes % 5.0 Eosinophils % 0.0 Basophils % 0.2 Nucleated RBC % 0 Absolute Neutrophils 5.33 Absolute Lymphocytes 0.75 L Absolute Monocytes 0.32 Absolute Eosinophils 0.00 Absolute Basophils 0.01 RBC Morphology Normal D-Dimer 864 H Sodium Potassium Chloride Carbon Dioxide Anion Gap BUN Creatinine Estimated GFR/1.73 m2 Glucose Calcium Magnesium Ferritin Total Bilirubin Conjugated Bilirubin AST ALT Alkaline Phosphatase C-Reactive Protein NT-Pro-B Natriuret Pep Total Protein Albumin 25-OH Vitamin D Total Pending Procalcitonin 08/22/21 08/21/21 08/21/21 07:35 12:00 12:00 WBC RBC Hgb Hct MCV MCH MCHC RDW Plt Count MPV Immature Gran % Neutrophils % Lymphocytes % Monocytes % Eosinophils % Basophils % Nucleated RBC % Absolute Neutrophils Absolute Lymphocytes Absolute Monocytes Absolute Eosinophils Absolute Basophils RBC Morphology D-Dimer Sodium 140 Potassium 4.4 Chloride 106 Carbon Dioxide 30.5 Anion Gap 3.5 BUN 15 Creatinine 0.7 Estimated GFR/1.73 m2 >= 60.00 Glucose 177 H Calcium 8.8 Magnesium 2.2 Ferritin 278 Total Bilirubin 0.6 Conjugated Bilirubin 0.2 AST 10 L ALT 12 L Alkaline Phosphatase 78 C-Reactive Protein 10.43 H NT-Pro-B Natriuret Pep 376 H Total Protein 6.5 Albumin 2.6 L 25-OH Vitamin D Total Procalcitonin 0.1 Preliminary micro results at discharge 08/21/21 13:00 Blood Culture - Preliminary Blood NO GROWTH 24 HOURS 08/21/21 12:00 Blood Culture - Preliminary Blood NO GROWTH 24 HOURS PFSH Medical History Allergic rhinitis Benign prostatic hyperplasia Carotid artery stenosis Cataract Chest pain Chronic back pain Contusion of right hip Coronary artery disease Diabetes mellitus Diverticular disease of colon Dysphagia Hypertension Injury, brachial plexus Lung collapse Lung nodule Macular degeneration Neck pain Peripheral artery disease Right lower lobe pneumonia Shoulder joint pain Sleep apnea Thrombocytopenia Transient ischemic attack Surgical History Hx of angioplasty Hx of cholecystectomy Hx of neck surgery Hx of shoulder surgery Family History Father Heart disease Cancer stomach cancer. Diabetes Asthma Mother Heart disease Cancer Uterine cancer. Son Cancer Renal cancer. 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
[2021-08-24 01:50] LABS: Vitamin D 25 Total 33.5 ng/mL (30-100)
== END 2021-08-22 13:11 | disposition left against medical advice (07) | DRG 177 ==
LOC: ER 16:56 → MS 17:26
PROVIDERS: Student in an Organized Health Care Education/Training Program; Admitting Provider Internal Medicine; Emergency Provider Emergency Medicine; PCP Physician Assistant; Visit Provider Internal Medicine
DX: J69.0 Pneumonitis due to inhalation of food and vomit (principal); U07.1 COVID-19; K56.7 Ileus, unspecified; E44.0 Moderate protein-calorie malnutrition; I85.10 Secondary esophageal varices without bleeding; R09.02 Hypoxemia; C32.1 Malignant neoplasm of supraglottis; D69.6 Thrombocytopenia, unspecified; G47.33 Obstructive sleep apnea (adult) (pediatric); J44.9 Chronic obstructive pulmonary disease, unspecified; K74.60 Unspecified cirrhosis of liver; E11.9 Type 2 diabetes mellitus without complications; I10 Essential (primary) hypertension; I25.10 Atherosclerotic heart disease of native coronary artery without angina pectoris; K21.9 Gastro-esophageal reflux disease without esophagitis; J30.9 Allergic rhinitis, unspecified; N40.0 Benign prostatic hyperplasia without lower urinary tract symptoms; G89.29 Other chronic pain; G54.9 Nerve root and plexus disorder, unspecified; K57.30 Diverticulosis of large intestine without perforation or abscess without bleeding; I73.9 Peripheral vascular disease, unspecified; I65.29 Occlusion and stenosis of unspecified carotid artery; Z79.84 Long term (current) use of oral hypoglycemic drugs; Z86.73 Personal history of transient ischemic attack (TIA), and cerebral infarction without residual deficits; Z93.1 Gastrostomy status; Z87.891 Personal history of nicotine dependence; K75.81 Nonalcoholic steatohepatitis (NASH); Z68.20 Body mass index [BMI] 20.0-20.9, adult; Z91.19 Patient's noncompliance with other medical treatment and regimen; H35.30 Unspecified macular degeneration
CPT/HCPCS: 36415; 71275; 74177; 80048; 80053; 80076; 82306; 82805; 83690; 84145; 87040; 87077; 87449; 87635; 93005; 96365; 96368; 96375; 96376; 99285; 82728; 83605; 83735; 83880; 84484; 85025; 85379; 85610; 85730; 86140; 93010; 99223; J1100; J2543; J3490; J7620

== ENCOUNTER 2021-12-02 14:50 | Outpatient (REF) | payer OTHER, SELFPAY ==
[2021-12-02 14:54] LABS: Hemoglobin A1C 7.1 % (<5.7)
[2021-12-02 15:16] LABS: ALT 23 U/L (16-63); AST 23 U/L (15-37); Albumin 3.1 g/dL (3.4-5.0); Alkaline Phosphatase 121 U/L (46-116); Anion Gap 9.5 mmol/L (3-11); BUN 26 mg/dL (7-18); Bilirubin, Total 0.3 mg/dL (0.2-1.0); CO2 27.5 mmol/L (21.0-32.0); CREATININE 0.5 mg/dL (0.70-1.30); Calcium 9.3 mg/dL (8.5-10.1); Chloride 104 mmol/L (98-107); Glucose 99 mg/dL (74-106); Potassium 4.4 mmol/L (3.5-5.1); Sodium 141 mmol/L (136-145); Total Protein 7.3 g/dL (6.4-8.2)
== END 2021-12-02 14:51 | disposition home or self-care (01) ==
LOC: NCHCN 14:50
PROVIDERS: PCP Physician Assistant; Visit Provider Physician Assistant
DX: E11.9 Type 2 diabetes mellitus without complications (principal); I10 Essential (primary) hypertension
CPT/HCPCS: 80053; 83036

== ENCOUNTER 2022-01-26 16:24 | Outpatient (REF) | payer MEDICARE, SELFPAY ==
[2022-01-28 13:17] LABS: COVID-19 RT-PCR UVMMC Result Negative (Negative)
== END 2022-01-26 16:25 | disposition home or self-care (01) ==
LOC: NCHCN 16:24
PROVIDERS: PCP Physician Assistant; Visit Provider Physician Assistant
DX: Z20.822 Contact with and (suspected) exposure to COVID-19 (principal); J06.9 Acute upper respiratory infection, unspecified
CPT/HCPCS: U0003

== ENCOUNTER 2022-08-19 03:14 | Outpatient (CLI) | payer MEDICARE, SELFPAY ==
--- NOTE | 2022-08-19 | DI.CT_ITS ---
Exam(s) CT CHEST W EXAM: CT CHEST W CLINICAL HISTORY: LARYNGEAL CA,S/P TORS RESECT,PULMONARY NODULES,ASSESS FOR CHANGE,F/U 01/22/22 TECHNIQUE: Imaging Protocol: Axial computed tomography images with coronal and sagittal reformatted images were created and reviewed CONTRAST MATERIAL: Intravenous: Omnipaque 350Contrast volume:70 mL. COMPARISON: CT CT CHEST/ABD/PELVIS W/CONTRAST from 08/24/[address] CHEST PE ABD PELVIS W from 08/21/[address] NECK W from 08/19/2022 FINDINGS: Tracheobronchial tree: Patent where visualized. Pulmonary parenchyma: No consolidation or dominant measurable mass. Moderate emphysematous changes ar e seen in the lungs. Calcified granuloma are present. There is a 0.5 cm nodule in the right lower l obe. This nodule can be seen on the CT scan from [facility] dated 08/24/2020. There is a 0.6 x 0.4 cm nodule in the left lower lobe. This is unchanged compared to the prior examination. Mediastinum and Sherry: No dominant adenopathy or fluid collection. The esophagus is unremarkable. The re is a stable 1.3 cm left hilar lymph node. Thyroid gland: Unremarkable. Pleura: No effusion or pneumothorax. Heart: The heart is not dilated. Mild coronary artery calcification. No pericardial effusion. Aorta: Thoracic aorta non-dilated. Atherosclerosis. Pulmonary arteries: The pulmonary arteries are not adequately opacified for evaluation of pulmonary e mbolic disease. Upper abdomen: There is a nodular contour of the liver and the spleen appears enlarged. Findings ar e most suspicious for hepatic cirrhosis. The patient is status post cholecystectomy. There is a per cutaneous gastrostomy tube in place. Lymph nodes: Within normal limits. Bones: Within normal limits for the patient's age. Soft tissues: Unremarkable. IMPRESSION: 1. Stable right and left lower lobe pulmonary nodules. No new nodules are seen. 2. Findings suggestive of hepatic cirrhosis and portal hypertension. 3. Moderate emphysematous changes in the lungs. 4. Findings of prior granulomatous disease. 5. No acute pulmonary process. RADIATION DOSE DELIVERED: 704.28 mGy.cm Total DLP DATA REPOSITORY: All CT scans at this facility are submitted to the National Radiology Data Registry (NRDR) Dose Index Registry (DIR) with the [employer] ([employer]). RADIATION OPTIMIZATION: All CT scans at this facility use at least one of these dose optimization te chniques: automated exposure control; mA and/or kV adjustment per patient size (includes targeted exa ms where dose is matched to clinical indication); or iterative reconstruction.
[2022-08-19 12:33] LABS: CREATININE 0.5 mg/dL (0.70-1.30); Estimated GFR 109.73 (mL/min/1.73m2)
[2022-08-19] MEDS: Normal Saline Flush 10 ML SYR IVP (12:54)
[2022-08-19] MEDS: Omnipaque 350 MG/ML 500 ML BTL-Imaging package IJ (12:55)
--- NOTE | 2022-08-19 13:00 | DI.CT_ITS ---
Exam(s) CT NECK W EXAM: CT NECK W CLINICAL HISTORY: LARYNX CA, C32.9; DYSPHAGIA, R13.10; S/P SUBGLOTTIC LARYNGECTOMY. TECHNIQUE: Imaging Protocol: Axial computed tomography images with coronal and sagittal reformatted images were created and reviewed. CONTRAST MATERIAL: Intravenous: Omnipaque 350 Contrast volume:50mL COMPARISON: CT CT NECK W from 06/08/[address] CHEST PE ABD PELVIS W from 08/21/2021 FINDINGS: Orbits and orbital soft tissues: Within normal limits. Visualized paranasal sinuses: There is mucosal thickening of the frontal sinuses and ethmoid air kendra ls. The remaining visualized paranasal sinuses and mastoid air cells are clear. Nasopharynx: Within normal limits. Oropharynx: There is mild enhancement seen at the base of the tongue on the right without definite ma ss or mass effect. No focal fluid collection is seen. Larynx: Postsurgical changes of a subglottic larynx ectomy are seen. Retropharyngeal space: Within normal limits. Parotids/submandibular: Within normal limits. Thyroid gland: Within normal limits. Lymphadenopathy: There is scattered lymph nodes seen along the level one to level three all measurin g less than 8 mm in short axis diameter which are physiologic in nature. Trachea: Within normal limits. Bones: Within normal limits for the patient's age. Carotids/Jugular: Atherosclerosis is present. Soft tissues: Within normal limits. IMPRESSION: 1. Status post subglottic laryngectomy. 2. Mild ill-defined enhancement seen in the base of the tongue on the right. No definite mass or mas s effect is identified. Further evaluation may be obtained with PET scan or MRI. 3. No evidence of cervical adenopathy. RADIATION DOSE DELIVERED: Total DLP Total DLP DATA REPOSITORY: All CT scans at this facility are submitted to the National Radiology Data Registry (NRDR) Dose Index Registry (DIR) with the [employer] (ACR). RADIATION OPTIMIZATION: All CT scans at this facility use at least one of these dose optimization te chniques: automated exposure control; mA and/or kV adjustment per patient size (includes targeted exa ms where dose is matched to clinical indication); or iterative reconstruction.
== END 2022-08-19 03:34 ==
LOC: DI 03:14
PROVIDERS: PCP Physician Assistant; Visit Provider Otolaryngology
DX: C32.9 Malignant neoplasm of larynx, unspecified (principal); Z98.890 Other specified postprocedural states; R91.8 Other nonspecific abnormal finding of lung field; J43.9 Emphysema, unspecified
CPT/HCPCS: 70491; 71260; 82565

== ENCOUNTER 2022-08-30 23:40 | Outpatient (REF) | payer MEDICARE, SELFPAY ==
[2022-08-30 18:19] LABS: ALT 49 U/L (16-63); AST 41 U/L (15-37); Albumin 3.4 g/dL (3.4-5.0); Alkaline Phosphatase 95 U/L (46-116); Bilirubin, Direct 0.2 mg/dL (0.0-0.2); Bilirubin, Total 0.4 mg/dL (0.2-1.0); Total Protein 6.8 g/dL (6.4-8.2)
[2022-08-30 18:28] LABS: HCT 37.5 % (40.0-50.0); HGB 12.3 g/dL (13.5-17.5); MCH 30.9 pg (27.0-33.0); MCHC 32.8 % (32.0-36.0); MCV 94 fL (80-95); MPV 14.5 fL (8.0-11.0); RBC 3.98 10^6/uL (4.36-5.78); RDW 15.1 % (11.8-14.1); RDW-SD 52.7 fL; WBC 7.19 10^3/uL (4.4-10.8)
[2022-08-30 18:55] LABS: Platelet Count 76 10^3/uL (130-400)
== END 2022-08-30 23:41 | disposition home or self-care (01) ==
LOC: NCHCN 23:40
PROVIDERS: PCP Physician Assistant; Visit Provider Physician Assistant
DX: Z01.818 Encounter for other preprocedural examination (principal)
CPT/HCPCS: 80076; 85027

== ENCOUNTER 2022-11-11 13:33 | Outpatient (REF) | payer MEDICARE, SELFPAY ==
[2022-11-11 15:24] LABS: HCT 35.5 % (40.0-50.0); HGB 11.6 g/dL (13.5-17.5); MCH 30.3 pg (27.0-33.0); MCHC 32.7 % (32.0-36.0); MCV 93 fL (80-95); MPV 12.3 fL (8.0-11.0); Platelet Count 109 10^3/uL (130-400); RBC 3.83 10^6/uL (4.36-5.78); RDW 15.3 % (11.8-14.1); RDW-SD 52.1 fL; WBC 7.24 10^3/uL (4.4-10.8)
[2022-11-11 15:44] LABS: ALT 21 U/L (16-63); AST 27 U/L (15-37); Albumin 3.3 g/dL (3.4-5.0); Alkaline Phosphatase 111 U/L (46-116); Anion Gap 8.4 mmol/L (3-11); BUN 20 mg/dL (7-18); Bilirubin, Total 0.4 mg/dL (0.2-1.0); CO2 25.6 mmol/L (21.0-32.0); CREATININE 0.5 mg/dL (0.70-1.30); Calcium 9.3 mg/dL (8.5-10.1); Chloride 107 mmol/L (98-107); Estimated GFR 109.73 (mL/min/1.73m2); Glucose 110 mg/dL (74-106); Potassium 4.5 mmol/L (3.5-5.1); Sodium 141 mmol/L (136-145); Total Protein 7.5 g/dL (6.4-8.2)
== END 2022-11-11 13:34 | disposition home or self-care (01) ==
LOC: NCHCN 13:33
PROVIDERS: PCP Physician Assistant; Visit Provider Physician Assistant
DX: E11.9 Type 2 diabetes mellitus without complications (principal)
CPT/HCPCS: 80053; 85027; 83036

== ENCOUNTER 2022-11-19 13:21 | Outpatient (CLI) | payer MEDICARE, SELFPAY ==
--- NOTE | 2022-11-19 | DI.RAD_ITS ---
Exam(s) XR CLAVICLE RT EXAM: XR CLAVICLE RT CLINICAL HISTORY: RT SHOULDER PAIN M25.511 SHOULDER CLAVICLE PAIN S/P FALL 3 WEEKS AGO TECHNIQUE: 2D digital imaging was performed of the right clavicle. Two images were obtained. AP and axial views were obtained. COMPARISON: CR,RF BARIUM SWALLOW W PA LAT CXR from 08/18/2010 FINDINGS: BONES: No acute fracture is present. No bony destructive lesion is seen. Well-circumscribed osseous d ensities are seen adjacent to the acromioclavicular joint which are chronic. JOINTS: No dislocation present. Degenerative changes are seen at the acromioclavicular joint. SOFT TISSUE: Normal IMPRESSION: No acute fracture or dislocation. DATA REPOSITORY: RADIATION DOSE DELIVERED:
--- NOTE | 2022-11-19 | DI.RAD_ITS ---
Exam(s) XR SHOULDER RT COMPLETE 2+V EXAM: XR SHOULDER RT COMPLETE 2+V CLINICAL HISTORY: RT SHOULDER PAIN M25.511 SHOULDER CLAVICLE PAIN S/P FALL 3 WEEKS AGO. TECHNIQUE: 2D digital imaging was performed of the right shoulder. Five images were obtained. AP, Grashey, Y-view and axillary views were obtained. COMPARISON: CR,RF BARIUM SWALLOW W PA LAT CXR from 08/18/2010 FINDINGS: BONES: No acute fracture is present. No bony destructive lesion is seen. There well corticated osseou s densities adjacent to the acromioclavicular joint which are chronic. JOINTS: No dislocation present. Degenerative changes are seen at the acromioclavicular joint. SOFT TISSUE: Normal. IMPRESSION: No acute fracture or dislocation. DATA REPOSITORY: RADIATION DOSE DELIVERED:
== END 2022-11-19 13:41 ==
LOC: DI 13:22
PROVIDERS: PCP Physician Assistant; Visit Provider Physician Assistant
DX: M25.511 Pain in right shoulder (principal); M19.011 Primary osteoarthritis, right shoulder
CPT/HCPCS: 73000; 73030

== ENCOUNTER 2023-01-12 01:52 | Outpatient (CLI) | payer MEDICARE, SELFPAY ==
--- NOTE | 2023-01-12 | DI.MRI_ITS ---
Exam(s) MR CHEST WO/W EXAM: MR CHEST WO/W CLINICAL HISTORY: SHOULDER,CLAVICLE PAIN,M25.511,M89.8X8,INCREASING PROTRUSION VS MASS TECHNIQUE: Multiplanar multisequence MRI of the right clavicle was performed. CONTRAST MATERIAL: IV Contrast: 14 ML of Dotarem contrast administered. COMPARISON: CT CT NECK W from 06/08/2021 CR XR CLAVICLE RT from 11/19/2022 MR MR UPPER JOINT RT WO/W from 01/12/2023 FINDINGS: The examination is limited due to patient motion artifact. Bone: There is T1 hypointense and T2 hyperintense marrow signal in the medial right clavicle and the right aspect of the sternum. Following contrast administration this area shows enhancement. There i s fluid seen it within the sternoclavicular joint measuring approximately 2.1 x 0.8 cm. There is enh ancement of the soft tissues around the sternoclavicular joint. This area shows hyperintense signal on the T2 weighted images and asymmetry compared to the soft tissues overlying the left sternoclavicu lar joint. No fluid collection is seen. No soft tissue mass is appreciated. The patient has a tracheostomy tube. Soft tissues: There is a 1.8 x 1.8 cm soft tissue mass superior to the tracheostomy and inferior to t he vocal cords.The thyroid gland is unremarkable. IMPRESSION: 1. T1 hypointense and T2 hyperintense enhancing marrow signal in the medial right clavicle and the ri ght aspect of the sternum. There is a fluid collection seen within the sternoclavicular joint. Ther e is edema and enhancement of the surrounding soft tissues of the right sternoclavicular joint. No s oft tissue fluid collection is seen. Primary diagnostic concern is for infection/osteomyelitis with cellulitis. Arthropathy and metastatic disease cannot be entirely excluded. 2. 1.8 x 1.8 cm soft tissue mass in the larynx. Neoplasm is suspected. 3. There is a tracheostomy tube in place. DATA REPOSITORY:
--- NOTE | 2023-01-12 | DI.MRI_ITS ---
Exam(s) MR UPPER JOINT RT WO EXAM: MR UPPER JOINT RT WO CLINICAL HISTORY: RT SHOULDER,CLAVICLE PAIN,M89.8X8,M25.511,INCREASING PROTRUSION VS MASS RT. TECHNIQUE: Multiplanar multisequence MRI was performed. COMPARISON: CR XR SHOULDER RT COMPLETE 2+V from 11/19/2022 FINDINGS: BONES: There is no fracture or contusion pattern. JOINTS: There are degenerative changes seen at the acromioclavicular joint. The glenohumeral joint i s normal. TENDONS: Supraspinatus: There is a partial articular surface tear of the supraspinatus tendon at its insertion site. Infraspinatus: Unremarkable. Subscapularis: There is tendinosis of the subscapularis tendon. Teres Minor: Unremarkable. Biceps and Mcgraws: Unremarkable. MUSCLES: Marked fatty atrophy of the teres minor muscle. GLENOID LABRUM: Unremarkable on this noncontrast examination. SOFT TISSUES: Unremarkable. LIGAMENTS: Unremarkable. OTHER: There is a small amount of fluid in the subacromial subdeltoid bursa. IMPRESSION: 1. There is a partial articular surface tear of the supraspinatus tendon at its insertion site. 2. Subscapularis tendinosis. 3. Marked atrophy of the teres minor muscle. 4. The patient was not able to continue with the postcontrast imaging at this time. DATA REPOSITORY:
[2023-01-12] MEDS: Normal Saline Flush 10 ML SYR IVP (11:00)
[2023-01-12] MEDS: Gadoterate meglumine 20 ML SYRINGE 14 ML IVP (11:03)
== END 2023-01-12 02:12 ==
LOC: DI 01:54
PROVIDERS: PCP Physician Assistant; Visit Provider Nurse Practitioner Family
DX: M25.511 Pain in right shoulder (principal); M89.8X8 Other specified disorders of bone, other site; M75.101 Unspecified rotator cuff tear or rupture of right shoulder, not specified as traumatic; M75.81 Other shoulder lesions, right shoulder; M62.511 Muscle wasting and atrophy, not elsewhere classified, right shoulder; Z85.21 Personal history of malignant neoplasm of larynx; Z93.0 Tracheostomy status; J38.7 Other diseases of larynx; M25.411 Effusion, right shoulder; R60.0 Localized edema
CPT/HCPCS: 71552; 73221

== ENCOUNTER 2023-01-25 15:47 | Outpatient (REF) | payer MEDICARE, SELFPAY ==
[2023-01-25 16:38] LABS: Abs Immature Grans 0.03 10^3/uL (0.0-0.06); Absolute Basophil Count 0.06 10^3/uL (0.0-0.2); Absolute Lymphocyte Count 1.33 10^3/uL (1.2-3.4); Absolute Monocyte Count 0.66 10^3/uL (0.1-0.8); Absolute Neutrophil Count 4.72 10^3/uL (1.2-6.7); Basophils % 0.9; Eosinophils % 2.9; HCT 35.6 % (40.0-50.0); HGB 11.4 g/dL (13.5-17.5); Immature Grans % 0.4; MCH 27.9 pg (27.0-33.0); MCV 87 fL (80-95); MPV 12.7 fL (8.0-11.0); Monocytes % 9.4; Neutrophils % 67.4; Platelet Count 127 10^3/uL (130-400); RBC 4.08 10^6/uL (4.36-5.78)
[2023-01-25 16:39] LABS: ESR 43 mm/hr (0-20)
[2023-01-25 16:47] LABS: C-Reactive Protein 1.42 mg/dL (0.0-0.3)
== END 2023-01-25 15:48 | disposition home or self-care (01) ==
LOC: NCHCN 15:47
PROVIDERS: PCP Physician Assistant; Visit Provider Physician Assistant
DX: C32.1 Malignant neoplasm of supraglottis (principal)
CPT/HCPCS: 85652; 85025; 86140

== ENCOUNTER 2023-05-13 14:59 | Outpatient (REF) | payer MEDICARE, SELFPAY ==
[2023-05-13 15:45] LABS: ALT 17 U/L (16-63); AST 18 U/L (15-37); Albumin 3.2 g/dL (3.4-5.0); Alkaline Phosphatase 127 U/L (46-116); Anion Gap 9.6 mmol/L (3-11); BUN 13 mg/dL (7-18); Bilirubin, Total 0.3 mg/dL (0.2-1.0); CO2 26.4 mmol/L (21.0-32.0); CREATININE 0.7 mg/dL (0.70-1.30); Calcium 9.2 mg/dL (8.5-10.1); Calculated LDL 104 mg/dL (<100); Chloride 103 mmol/L (98-107); Cholesterol 185 mg/dL (<200); Estimated GFR 98.51 (mL/min/1.73m2); Glucose 285 mg/dL (74-106); HDL Cholesterol 45 mg/dL (40-60); Potassium 4.3 mmol/L (3.5-5.1); Sodium 139 mmol/L (136-145); Total Protein 7.1 g/dL (6.4-8.2); Triglyceride 183 mg/dL (<150)
[2023-05-16 08:39] LABS: AFP Tumor Marker <2.5 ng/mL (<8.1)
== END 2023-05-13 15:00 | disposition home or self-care (01) ==
LOC: NCHCN 14:59
PROVIDERS: PCP Physician Assistant; Visit Provider Physician Assistant
DX: E11.9 Type 2 diabetes mellitus without complications (principal); K74.60 Unspecified cirrhosis of liver
CPT/HCPCS: 80053; 80061; 82105; 83036

== ENCOUNTER 2023-10-13 14:20 | Outpatient (REF) | payer MEDICARE, SELFPAY ==
[2023-10-13 15:42] LABS: HCT 35.7 % (40.0-50.0); HGB 11.9 g/dL (13.5-17.5); MCH 29.2 pg (27.0-33.0); MCHC 33.3 % (32.0-36.0); MCV 88 fL (80-95); MPV 12.6 fL (8.0-11.0); Platelet Count 114 10^3/uL (130-400); RBC 4.08 10^6/uL (4.36-5.78); RDW 14.6 % (11.8-14.1); RDW-SD 46.5 fL; WBC 7.06 10^3/uL (4.4-10.8)
[2023-10-13 15:50] LABS: ALT 35 U/L (16-63); AST 32 U/L (15-37); Albumin 3.6 g/dL (3.4-5.0); Alkaline Phosphatase 114 U/L (46-116); Anion Gap 11.4 mmol/L (3-11); BUN 17 mg/dL (7-18); Bilirubin, Total 0.5 mg/dL (0.2-1.0); CO2 22.6 mmol/L (21.0-32.0); CREATININE 0.9 mg/dL (0.70-1.30); Calcium 9.5 mg/dL (8.5-10.1); Chloride 101 mmol/L (98-107); Estimated GFR 91.31 (mL/min/1.73m2); Glucose 305 mg/dL (74-106); Potassium 4.9 mmol/L (3.5-5.1); Sodium 135 mmol/L (136-145); Total Protein 7.3 g/dL (6.4-8.2)
[2023-10-13 16:08] LABS: Hemoglobin A1C 9.4 % (<5.7)
== END 2023-10-13 14:21 | disposition home or self-care (01) ==
LOC: NCHCN 14:20
PROVIDERS: PCP Physician Assistant; Visit Provider Nurse Practitioner Family
DX: E11.9 Type 2 diabetes mellitus without complications (principal)
CPT/HCPCS: 80053; 85027; 83036

== ENCOUNTER 2023-11-14 16:51 | Outpatient (REF) | payer MEDICARE, SELFPAY ==
[2023-11-14 16:00] LABS: HCT 36.4 % (40.0-50.0); HGB 12.2 g/dL (13.5-17.5); MCHC 33.5 % (32.0-36.0); MCV 87 fL (80-95); MPV 12.4 fL (8.0-11.0); Platelet Count 103 10^3/uL (130-400); RBC 4.21 10^6/uL (4.36-5.78); RDW 14.6 % (11.8-14.1); RDW-SD 46.1 fL; WBC 8.12 10^3/uL (4.4-10.8)
[2023-11-14 16:29] LABS: Hemoglobin A1C 9.4 % (<5.7)
[2023-11-14 16:45] LABS: ALT 36 U/L (16-63); AST 28 U/L (15-37); Albumin 3.6 g/dL (3.4-5.0); Alkaline Phosphatase 101 U/L (46-116); Anion Gap 9.7 mmol/L (3-11); BUN 11 mg/dL (7-18); Bilirubin, Total 0.3 mg/dL (0.2-1.0); CO2 23.3 mmol/L (21.0-32.0); CREATININE 0.8 mg/dL (0.70-1.30); Chloride 102 mmol/L (98-107); Estimated GFR 94.62 (mL/min/1.73m2); Glucose 243 mg/dL (74-106); Potassium 4.4 mmol/L (3.5-5.1); Sodium 135 mmol/L (136-145); Total Protein 7.2 g/dL (6.4-8.2)
[2023-11-14 17:16] LABS: Calcium 9.8 mg/dL (8.5-10.1)
== END 2023-11-14 16:52 | disposition home or self-care (01) ==
LOC: NCHCN 16:51
PROVIDERS: PCP Physician Assistant; Visit Provider Physician Assistant
DX: E11.9 Type 2 diabetes mellitus without complications (principal)
CPT/HCPCS: 80053; 85027; 83036

== ENCOUNTER → 2023-11-17 02:50 | Outpatient (CLI) | payer MEDICARE, SELFPAY ==
--- NOTE | 2023-11-17 | DI.US_ITS ---
Exam(s) US CAROTID EXAM: US CAROTID CLINICAL HISTORY: CAROTID ARTERY STENOSIS,I65.29. TECHNIQUE: Ultrasound carotids performed using grayscale, color-flow, and spectral Doppler imaging. COMPARISON: CT CT NECK W from 06/08/2021 FINDINGS: RIGHT CAROTID ARTERY: Plaque: Moderate calcific plaque is seen throughout the right cervical carotid artery system. Velocity elevation: See below. LEFT CAROTID ARTERY: Plaque: Moderate calcific plaque is seen throughout the left cervical carotid artery system. Velocity elevation: None. VERTEBRAL ARTERIES: Antegrade flow. Measurements: R Bulb: 34.5cm/s PS / 12cm/s ED R CCA: 44.9cm/s PS / 12.1cm/s ED R ECA: 162.8cm/s PS / 4.9cm/s ED R ICA Prox: 164.8cm/s PS / 41cm/s ED R ICA Mid: 174.3cm/s PS / 31.4cm/s ED R ICA Distal: 107cm/s PS /25.2cm/s ED R Vert: 87.6cm/s PS / 17.7cm/s ED R SVR: 3.9 R DVR: 2.6 L Bulb: 32.9cm/s PS / 10.3cm/s ED L CCA: 52.8cm/s PS / 14.1cm/s ED L ECA: 359.1cm/s PS / 26.3cm/s ED L ICA Prox: 93.5cm/s PS / 19.6cm/s ED L ICA Mid: 110.9cm/s PS / 23.7cm/s ED L ICA Distal: 123.9cm/s PS / 23.7cm/s ED L Vert: 70.9cm/s PS / 13cm/s ED L SVR: 2.3 L DVR: 1.7 IMPRESSION: 1. Findings of right internal carotid artery stenosis (50-69 percent). 2. No hemodynamically significant left internal carotid artery stenosis. Criteria for Carotid Stenosis: Normal: ICA PSV <125 cm/s no plaque or intimal thickening is visible. <50% stenosis: ICA PSV <125 cm/s and plaque or intimal thickening is visible. 50-69% stenosis: ICA PSV is 125-250 cm/s and plaque is visible. >70% stenosis to near occlusion: ICA PSV >250 cm/s with visible plaque and luminal narrowing. DATA REPOSITORY:
== END ==
PROVIDERS: PCP Physician Assistant; Visit Provider Physician Assistant
DX: I65.29 Occlusion and stenosis of unspecified carotid artery (principal)
CPT/HCPCS: 93880

== ENCOUNTER 2024-05-09 08:24 | Outpatient (REF) | payer MEDICARE, SELFPAY ==
[2024-05-09 16:45] LABS: HCT 37.4 % (40.0-50.0); HGB 12.3 g/dL (13.5-17.5); MCH 29.8 pg (27.0-33.0); MCHC 32.9 % (32.0-36.0); MCV 91 fL (80-95); MPV 12.4 fL (8.0-11.0); RBC 4.13 10^6/uL (4.36-5.78); RDW 13.9 % (11.8-14.1); RDW-SD 45.7 fL; WBC 5.78 10^3/uL (4.4-10.8)
[2024-05-09 17:09] LABS: ALT 27 U/L (16-63); AST 21 U/L (15-37); Albumin 3.7 g/dL (3.4-5.0); Alkaline Phosphatase 96 U/L (46-116); Anion Gap 10.2 mmol/L (3-11); BUN 12 mg/dL (7-18); Bilirubin, Total 0.37 mg/dL (0.2-1.0); CO2 25.8 mmol/L (21.0-32.0); CREATININE 0.7 mg/dL (0.70-1.30); Calcium 9.2 mg/dL (8.5-10.1); Calculated LDL 120 mg/dL (<100); Chloride 107 mmol/L (98-107); Cholesterol 198 mg/dL (<200); Glucose 139 mg/dL (74-106); HDL Cholesterol 46 mg/dL (40-60); Potassium 4.4 mmol/L (3.5-5.1); Sodium 143 mmol/L (136-145); Total Protein 7.1 g/dL (6.4-8.2); Triglyceride 161 mg/dL (<150)
[2024-05-09 20:22] LABS: Hemoglobin A1C 7.4 % (<5.7)
[2024-05-09 21:17] LABS: Platelet Count 85 10^3/uL (130-400)
[2024-05-09 23:21] LABS: AFP Tumor Marker <2.5 ng/mL (<8.1)
== END 2024-05-09 08:25 | disposition home or self-care (01) ==
LOC: NCHCN 08:24
PROVIDERS: PCP Physician Assistant; Visit Provider Physician Assistant
DX: E11.9 Type 2 diabetes mellitus without complications (principal); K74.60 Unspecified cirrhosis of liver
CPT/HCPCS: 80053; 80061; 85027; 82105; 83036

== ENCOUNTER 2024-05-23 12:47 | Outpatient (REF) | payer MEDICARE, SELFPAY ==
[2024-05-23 22:00] LABS: Clarity Cloudy
[2024-05-23 22:05] LABS: Mononuclear Cells 27 %; Nucleated Cells 1958 uL (0); Polynuclear Cells 73 %
[2024-05-24 10:05] LABS: Crystals (BF) No Crystals seen
== END 2024-05-23 12:48 | disposition home or self-care (01) ==
LOC: NCHCN 12:47
PROVIDERS: PCP Physician Assistant; Visit Provider Physician Assistant
DX: M70.22 Olecranon bursitis, left elbow (principal)
CPT/HCPCS: 87077; 87070; 87186; 87205; 89051; 89060

== ENCOUNTER → 2024-06-20 13:45 | Outpatient (BNVA) | payer MEDICARE, SELFPAY | PROVIDERS: PCP Physician Assistant; Referring Provider Physician Assistant; Visit Provider Nurse Practitioner Adult Health | DX: G56.22 Lesion of ulnar nerve, left upper limb (principal); G56.02 Carpal tunnel syndrome, left upper limb | CPT/HCPCS: 95886; 95887; 95909; 99215 ==

== ENCOUNTER 2024-08-21 15:15 | Outpatient (CLI) | payer MEDICARE, SELFPAY ==
--- NOTE | 2024-08-21 10:00 | DI.RAD_ITS ---
Exam(s) XR SHOULDER LT COMPLETE 2+V EXAM: XR SHOULDER LT COMPLETE 2+V CLINICAL HISTORY: LEFT SHOULDER PAIN. TECHNIQUE: 2D digital imaging was performed. Two views. COMPARISON: CR XR SHOULDER RT COMPLETE 2+V from 11/19/2022 MR MR UPPER JOINT RT WO from 01/12/2023 FINDINGS: BONES: No acute fracture is present. No bony destructive lesion is seen. JOINTS: No dislocation present. Degenerative changes at AC joint and undersurface of acromion. Christian ohumeral joint space is maintained. Mild spurring at the glenoid. SOFT TISSUE: Small rounded calcification adjacent to greater tuberosity consistent with calcific tend inosis. IMPRESSION: Mild degenerative changes and mild calcific tendinosis. DATA REPOSITORY: RADIATION DOSE DELIVERED:
== END 2024-08-21 15:16 | disposition home or self-care (01) ==
LOC: DIORS 15:16
PROVIDERS: PCP Physician Assistant; Referring Provider Physician Assistant; Visit Provider Student in an Organized Health Care Education/Training Program
DX: M75.102 Unspecified rotator cuff tear or rupture of left shoulder, not specified as traumatic; M12.812 Other specific arthropathies, not elsewhere classified, left shoulder
CPT/HCPCS: 99213; 73030

== ENCOUNTER 2024-08-23 17:55 | Outpatient (REF) | payer MEDICARE, SELFPAY ==
[2024-08-23 19:20] LABS: COMMENT (LAB VIEW ONLY) 58.86 mg/dL; Microalb ug/mg Crea 49.9 ug/mg Cr
== END 2024-08-23 17:56 | disposition home or self-care (01) ==
LOC: NCHCN 17:55
PROVIDERS: PCP Physician Assistant; Visit Provider Physician Assistant
DX: E11.9 Type 2 diabetes mellitus without complications (principal)
CPT/HCPCS: 82043; 82570

== ENCOUNTER 2024-11-27 16:34 | Outpatient (REF) | payer BC, SELFPAY ==
[2024-11-27 15:29] LABS: HCT 40.9 % (40.0-50.0); HGB 13.7 g/dL (13.5-17.5); MCH 30.7 pg (27.0-33.0); MCHC 33.5 % (32.0-36.0); MCV 92 fL (80-95); MPV 13.2 fL (8.0-11.0); RBC 4.46 10^6/uL (4.36-5.78); RDW 14.1 % (11.8-14.1); WBC 6.26 10^3/uL (4.4-10.8)
[2024-11-27 15:47] LABS: Platelet Count 92 10^3/uL (130-400)
[2024-11-27 16:26] LABS: ALT 37 U/L (16-63); AST 27 U/L (15-37); Albumin 3.8 g/dL (3.4-5.0); Alkaline Phosphatase 124 U/L (46-116); Anion Gap 10.2 mmol/L (3-11); BUN 15 mg/dL (7-18); Bilirubin, Total 0.64 mg/dL (0.2-1.0); CO2 24.8 mmol/L (21.0-32.0); Calcium 9.8 mg/dL (8.5-10.1); Calculated LDL 141 mg/dL (<100); Chloride 97 mmol/L (98-107); Cholesterol 245 mg/dL (<200); Estimated GFR 79.97 (mL/min/1.73m2); Glucose 436 mg/dL (74-106); HDL Cholesterol 48 mg/dL (40-60); Potassium 4.4 mmol/L (3.5-5.1); Sodium 132 mmol/L (136-145); Total Protein 7.5 g/dL (6.4-8.2); Triglyceride 282 mg/dL (<150)
[2024-11-27 20:26] LABS: Hemoglobin A1C > 13.0 % (<5.7)
== END 2024-11-27 16:35 | disposition home or self-care (01) ==
LOC: NCHCN 16:34
PROVIDERS: PCP Physician Assistant; Visit Provider Physician Assistant
DX: E11.9 Type 2 diabetes mellitus without complications (principal)
CPT/HCPCS: 80053; 80061; 85027; 83036

== ENCOUNTER 2025-02-11 01:41 | Outpatient (CLI) | payer MEDICARE, SELFPAY ==
--- NOTE | 2025-02-11 | DI.NM_ITS ---
APPROVED REPORT Exam: Pharmacologic Patient Location: Out-Patient Room/Bed: Stress Nurse: Tova Shields RN Ordering Provider:NÉSTOR CHRISTIAN, Contact Number: [phone] BMI: 25.54 Baseline Rhythm: Sinus Bradycardia Indications: AJ, progressive dyspnea Medical History Medical History: DMT2, HLD, malignant tumor of supraglottis (Tracheoplasty by cervical approach 2023), RLS, carotid artery stenosis, esophageal varices w/out bleeding, COPD, cirrhosis of liver, sle ep apnea Cardiac Medications: Aspirin, carvedilol, glimeperide, hydrocodone with tylenol, ipratopium-albuterol , metformin, omeprazole, pregabalin, simvastatin, trazodone, trulicity Allergies: Elavil, jardiance, prednisone Cardiac Risk Factors: COPD, HLD, former smoker, CVD Previous Cardiac Procedures: Cardiac cath 11/21/2014 Pretest Chest Pain Characteristics: None Exercise History: Sedentary Physical Disabilities: Unsteadiness Lung Sounds: Diminished throughout Heart Sounds: Regular Stress Test Details Test: Pharmacologic stress testing performed using 0.4 mg of regadenoson per 5 mL given IV over 10 s econds. Reason for pharmacologic stress test: physical limitation. Nuclear Acquisition: Rest Tc-99m/Stress Tc-99m 1 day Rest Isotope: Tc-99m Sestamibi. Dose: 10.0 Date: 02/11/2025 Injection Time: 0915 Stress Isotope: Tc-99m Sestamibi. Dose: 30.0 Date: 02/11/2025 Injection Time: 1110 HR Resting HR Supine: 57 bpm Max Heart Rate (APMHR): 147 bpm Target HR (85% APMHR): 125 bpm Max HR Achieved: 65 bpm % of APMHR: 44 Recovery HR: 63 bpm BP Resting BP Supine: 168/72 mmHg Max BP: 168/72 mmHg Recovery BP: 138/62 mmHg ECG Resting ECG: Sinus Bradycardia Ectopy: Rare PVC's Stress ECG: Sinus Rhythm ST Change: Nondiagnostic low heart rate Recovery ECG: Sinus Rhythm Recovery ST Change: Nondiagnostic low heart rate Clinical Stress Symptoms: Mod SOB Angina Score: None Rate Pressure Product: [id number] Stress ECG Conclusion 1. Resting electrocardiogram showed low voltage and old anterior infarct 2. Patient underwent testing using pharmacologic stress with regadenoson 3. Peak heart rate achieved was 44% of maximal predicted heart rate for age 4. The electrocardiographic portion of the test was nondiagnostic 5. See MPI report Stress Test Summary STAGE HR BP SpO2 Symptoms NOTES Supine 57 168/72 93% 1 min post Lexiscan injection 62 157/72 95% Mod SOB 3 min post Lexiscan injection 63 120/80 96% 6 min post Lexiscan injection 63 138/62 SOB resolved. MPI Conclusion Myocardial perfusion is normal. There is no ischemia or evidence of prior infarction Ejection fraction is 56% with normal wall motion
[2025-02-11] MEDS: Regadenoson 0.4 MG/5 ML SYR IVP (11:23)
== END 2025-02-11 02:01 ==
LOC: DI 01:41
PROVIDERS: PCP Physician Assistant; Visit Provider Internal Medicine Cardiovascular Disease
DX: R06.09 Other forms of dyspnea (principal)
CPT/HCPCS: 78452; 93016; 93018; 93017; J2785

== ENCOUNTER → 2025-04-01 09:33 | Outpatient (BNVA) | payer MEDICARE, SELFPAY | PROVIDERS: PCP Physician Assistant; Referring Provider Physician Assistant; Visit Provider Podiatrist | DX: E11.65 Type 2 diabetes mellitus with hyperglycemia (principal); E11.42 Type 2 diabetes mellitus with diabetic polyneuropathy; R26.89 Other abnormalities of gait and mobility; Q66.71 Congenital pes cavus, right foot; Q66.72 Congenital pes cavus, left foot; B35.1 Tinea unguium; I73.89 Other specified peripheral vascular diseases; R26.2 Difficulty in walking, not elsewhere classified | CPT/HCPCS: 99214 ==

== ENCOUNTER 2025-08-27 10:46 | Outpatient (REF) | payer MEDICARE, SELFPAY ==
[2025-08-27 15:49] LABS: HCT 37.2 % (40.0-50.0); HGB 12.3 g/dL (13.5-17.5); MCH 29.6 pg (27.0-33.0); MCHC 33.1 % (32.0-36.0); MCV 89 fL (80-95); RBC 4.16 10^6/uL (4.36-5.78); RDW 14.0 % (11.8-14.1); RDW-SD 45.6 fL; WBC 5.45 10^3/uL (4.4-10.8)
[2025-08-27 16:00] LABS: MPV 12.5 fL (8.0-11.0)
[2025-08-27 16:01] LABS: Platelet Count 92 10^3/uL (130-400)
[2025-08-27 16:11] LABS: ALT 34 U/L (16-63); AST 28 U/L (15-37); Albumin 3.7 g/dL (3.4-5.0); Alkaline Phosphatase 89 U/L (46-116); Anion Gap 8.5 mmol/L (3-11); BUN 12 mg/dL (7-18); Bilirubin, Total 0.3 mg/dL (0.2-1.0); CO2 25.5 mmol/L (21.0-32.0); Calcium 9.5 mg/dL (8.5-10.1); Chloride 103 mmol/L (98-107); Glucose 208 mg/dL (74-106); Potassium 4.3 mmol/L (3.5-5.1); Sodium 137 mmol/L (136-145); Total Protein 7.6 g/dL (6.4-8.2)
[2025-08-27 16:15] LABS: Hemoglobin A1C 8.1 % (<5.7)
[2025-08-27 16:54] LABS: Microalb ug/mg Crea 30.3 ug/mg Cr
== END 2025-08-27 10:47 | disposition home or self-care (01) ==
LOC: NCHCN 10:46
PROVIDERS: PCP Physician Assistant; Visit Provider Physician Assistant
DX: K74.60 Unspecified cirrhosis of liver (principal); I10 Essential (primary) hypertension; E11.9 Type 2 diabetes mellitus without complications
CPT/HCPCS: 80053; 85027; 82043; 82105; 82570; 83036

== ENCOUNTER → 2025-09-02 09:28 | Outpatient (BNVA) | payer MEDICARE, SELFPAY | PROVIDERS: PCP Physician Assistant; Referring Provider Physician Assistant; Visit Provider Student in an Organized Health Care Education/Training Program | DX: I85.00 Esophageal varices without bleeding (principal); K74.60 Unspecified cirrhosis of liver | CPT/HCPCS: 99213 ==

== ENCOUNTER → 2025-09-09 01:59 | Outpatient (CLI) | payer MEDICARE, SELFPAY ==
--- NOTE | 2025-09-09 | DI.US_ITS ---
Exam(s) US ABDOMEN LIMITED EXAM: US ABDOMEN LIMITED CLINICAL HISTORY: CIRRHOSIS OF LIVER K74.60 DIFFUSE ABD DISCOMFORT KNOWN CIRRHOSIS TECHNIQUE: Ultrasound abdomen performed using standard protocol. COMPARISON: CT CT CHEST PE ABD PELVIS W from 08/21/2021 FINDINGS: LIVER: enlarged at 20 cm. Coarsened echotexture. Mildly increased echogenicity. The nodular contour, consistent with cirrhosis. No focal liver lesions are seen. GALLBLADDER: Cholecystectomy peer BILIARY SYSTEM: No intrahepatic or extrahepatic biliary ductal dilation. KIDNEYS: Kidneys are symmetric in size. No evidence of renal calculi. No evidence of hydronephrosis. No renal mass or cyst identified. PANCREAS: Normal where visualized. SPLEEN: Not enlarged. ABDOMINAL AORTA AND IVC: Visualized portions normal caliber. ASCITES: None seen. IMPRESSION: Cirrhotic appearing liver. No evidence of focal mass. DATA REPOSITORY:
== END ==
PROVIDERS: PCP Physician Assistant; Visit Provider Physician Assistant
DX: K74.60 Unspecified cirrhosis of liver (principal)
CPT/HCPCS: 76705